=== PATIENT | male | born 1980 | race Caucasian/White ===

== ENCOUNTER 2016-12-07 07:09 | Inpatient (IN) | payer MEDICAID, OTHER ==
[2016-12-07] MEDS ORDERED: MAG HYDROX/AL HYDROX/SIMETH 30 ML CUP PO PRN (11:28)
[2016-12-07] MEDS ORDERED: MAGNESIUM HYDROXIDE 2,400 MG/10 ML CUP PO PRN (11:28)
[2016-12-07] MEDS ORDERED: ACETAMINOPHEN TAB 325 MG TAB PO PRN (11:28)
[2016-12-07] MEDS ORDERED: LORazepam 2 MG/ML SYRINGE IM PRN (11:30)
[2016-12-07] MEDS ORDERED: LORazepam 1 MG TAB PO PRN (11:30)
[2016-12-07] MEDS ORDERED: ZIPRASIDONE 20 MG VIAL IM PRN (11:31)
--- NOTE | 2016-12-07 13:25 | P.HP ---
Psychiatric H&P - . H&P Date: 12/07/16 History & Physical: DATE OF SERVICE: 12/07/2016 IDENTIFYING DATA: This patient is a 36-year-old single male who was admitted to the mental health unit through . HISTORY OF PRESENT ILLNESS: The patient presents with being fearful of falling asleep due to the injection that he received at [facility]. Patient reports that he was having problems yesterday, got stopped by the police 3 times for doing stupid things. States that former friends have been doing things but is unwilling to describe them. States they're former friends so no reason to go into it. He reports that he is paranoid and not the only problem that he is having. Initially he denies auditory hallucinations, but then states he has conversations in his head "like with an imaginary friend" unable to describe the conversations. Patient states that approximately December of last year he took a look at himself and saw that he was overweight and decided to stop taking invega. States that when he was here in 2013 he started on invega and he gained weight and he didn' t like how he felt, to lethargic. Unclear when he was changed from the injection to the oral medicine. Today patient states he would just prefer to have Ativan and Ritalin when necessary and maybe a little Seroquel. Patient has no insight to his illness. PAST PSYCHIATRIC HISTORY: Last admission here May 2014. Noncompliance with outpatient care. Patient reports problems with almost every medication he has been on, causing sedation and weight gain.. PAST MEDICAL HISTORY: Per record. ALLERGIES: No known drug allergies. CHEMICAL DEPENDENCY HISTORY: Patient denies current substance use denies past history of drugs and alcohol.. 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 FAMILY CHEMICAL DEPENDENCY HISTORY: Patient denies. LEGAL HISTORY: Had a domestic violence charge against his mother, no pending charges. SOCIAL HISTORY: Patient reports that he was raised by his mother and father has an older brother. Currently he is living with his father, was vague about the problems occurring, describes it as a intensity/energy possibly due to his own paranoia. Patient states that his father is probably going to hang amount to dry like he did the last time he was here, and make him stay for a month. States he thinks he has burned all of his bridges, unwilling to discuss his paranoid ideation related to "former friends". 1 and , no children. On social security disability.. MENTAL STATUS EXAM: Patient alert and oriented 3, good eye contact, poorly groomed in street clothing. Speech normal volume, slight increase rate and production. Push to speech, not pressured Coherent, logical and circumstantial thought process. No [place], no FOI. No TB/TW/ TI +auditory hallucinations, no visual hallucinations. +++ paranoid ideation, but reluctant to reveal, possible delusions or IOR related to "former friends" Memory grossly intact Cognition average intelligence Mood neutral to irritable, affect constricted, congruent with mood. Denies suicidal ideation, denies homicidal ideation. Insight limited; Judgment grossly intact for treatment purposes ]. STRENGTHS: Has a home. WEAKNESSES: No insight. IMPRESSIONS: Patient with history of bipolar disorder, with bizarre behavior leading police to cert patient to [facility]. Patient received an injection while at [facility], which most likely has dampened the manic symptoms that he was experiencing and now presents with hypomania. Patient is noncompliant with his outpatient care, not taking his antipsychotic medication. Patient has no insight. He is in need of antipsychotic/mood stabilizer but is trying to direct the dose and refuses injection. Bipolar disorder, MRA manic PLAN: Continue inpatient admission for safety (patients and others), monitor. Need outpatient information, have called [facility] but no information. Will restart oral 6mg paliperidone, qhs. but he will most likely need injection. Suicide precautions. Physical examination, labs. . Allergies Allergy/AdvReac Type Severity Reaction Status Date / Time No Known Allergies Allergy Verified 12/07/16 10:12 Vital Signs Temp 98.3 F 12/07/16 10:14 Pulse 86 12/07/16 10:14 Resp 15 12/07/16 10:14 BP 145/76 12/07/16 10:14 Pulse Ox 96 12/07/16 10:14 Intake & Output 12/06/16 12/07/16 12/07/16 18:59 06:59 18:59 Weight 108.4 kg 12/07/16 12:41 12/07/16 13:26
[2016-12-07] MEDS: QUEtiapine 100 MG TAB PO SCH (21:00)
[2016-12-07] MEDS: PALIPERIDONE 6 MG TAB.ER.24 PO SCH (21:00)
--- NOTE | 2016-12-08 08:14 | CONS ---
DATE OF CONSULTATION: REASON FOR CONSULTATION: Medical clearance. Patient is a 36-year-old pleasant gentleman who was admitted with history of bipolar disorder, admitted for depression. Patient denied any fever, chills. Patient denied any nausea, vomiting, abdominal pain. Home medications include: Cyanocobalamin, ginkgo biloba, lorazepam, magnesium oxide, Ritalin, ( ), and Seroquel. PAST MEDICAL HISTORY: Significant for ADHD, bipolar disorder, hernia repair in the past. Patient does smoke. Denied any alcohol abuse or any drug abuse. FAMILY HISTORY: Significant for psychiatric disorders. PHYSICAL EXAMINATION: VITAL SIGNS: Temperature 98.0, pulse of 78, respiratory rate 18, blood pressure 125/69, saturation 96% on room air. GENERAL: The patient is alert and oriented x3, not in any acute distress. Well developed, well nourished. HEENT: Pupils are round and equally reacting to light. EOMI. No scleral icterus. No conjunctival pallor. Normocephalic, atraumatic. No pharyngeal erythema. No thyromegaly. CARDIOVASCULAR: S1 and S2 present. No murmurs, rubs, or gallops. PULMONARY: Chest is clear to auscultation, no wheezing or crackles. ABDOMEN: Soft, nontender, nondistended, normoactive bowel sounds. No palpable organomegaly. MUSCULOSKELETAL: No joint swelling or deformity. EXTREMITIES: No cyanosis, clubbing, or pedal edema. NEUROLOGICAL: Gross neurological examination did not reveal any focal deficits. SKIN: No rashes. LABORATORY DATA: Magnesium is 2.0. ASSESSMENT AND PLAN: 1. Depression. Management as per primary service. 2. Nicotine abuse. Counseling was provided. 3. There are no major medical issues for the patient. Patient is stable enough and will not require any hospitalizations to inpatient medicine. Will sign off at this point of time. Thank for letting me participate in the care of this patient.
--- NOTE | 2016-12-08 09:03 | P.PN ---
Progress Note - Text CLINICAL PROBLEMS: Bipolar disorder manic 24 HOUR EVENTS: He slept 6 hours last night after receiving 1 mg of lorazepam at 21:01. He has been compliant with prescribed medication and posed no management problem. EXAMINATION: He presented as a 36-year-old somewhat disheveled appearing male who was pleasant on approach. He appeared moderately sedated. He complained of feeling restless and having difficulty sitting still. He attributed this hospitalization to being unable to sleep and attributes his insomnia to inadvertently taking Ritalin at night rather than during the day. He was restless and is often observed pacing the unit. He had no abnormal involuntary movements. His gait was steady. His speech was spontaneous with normal rate, rhythm and volume. His affect was blunted but stable and appropriate. He denied suicidal ideation or wishes. He denied homicidal ideation. He denied feeling hopeless, helpless or worthless. He ruminated on the events leading up to his hospitalization. His thinking was concrete but his associations were coherent and logical. He denied hallucinations and did not appear to be responding to internal stimuli. PERTINENT DATA: Medicine consult appreciated (no current medical problems). Magnesium levels from 12/07/2016 was 2.0 ASSESSMENT: He continued show symptoms of hypomania. He is able to tolerate current psychotropic medications with only moderate sedation. PLAN: Continue inpatient hospitalization. Continue suicide precautions with 15 minute checks. Continue Seroquel 100 mg at bedtime and Invega 6 mg daily at bedtime. Continue lorazepam 1 mg every 8 hours IM for acute agitation or acute psychosis and/or 20 mg of Geodon IM twice a day when necessary for agitation or acute psychosis. Encourage participation in therapeutic groups to activities. Evaluate clinical status response to treatment on a daily basis.
[2016-12-08 10:44] VITALS: BMI 32.3
[2016-12-08] MEDS: CYANOCOBALAMIN 500 MCG TAB PO SCH (12:52)
[2016-12-08] MEDS: QUEtiapine 100 MG TAB PO SCH (20:35)
[2016-12-08] MEDS: PALIPERIDONE 6 MG TAB.ER.24 PO SCH (20:35)
--- NOTE | 2016-12-09 11:12 | P.PN ---
Progress Note - Text CLINICAL PROBLEMS: Bipolar disorder manic 24 HOUR EVENTS: He slept 4 hours last night. He has been compliant with prescribed medication and posed no management problem. EXAMINATION: He presented as a 36-year-old male who was pleasant on approach. He appeared sedated. He complained of feeling of feeling sluggish and "medicated". He attributed this feeling to restarting Invega (admitted to not taking the medication prior to admission). He is not interested and transitioning from oral to long-acting Invega. He complained that he was sedated and fatigued when he receiving Invega Sustena. He had no abnormal involuntary movements. His gait was steady. His speech was spontaneous with normal rate, rhythm and volume. His affect was blunted but stable and appropriate. He denied suicidal ideation or wishes. He denied homicidal ideation. He denied feeling hopeless, helpless or worthless. His thinking was concrete but his associations were coherent and logical. He denied hallucinations and did not appear to be responding to internal stimuli. ASSESSMENT: He does not appear manic or hypomanic. He is able to tolerate current psychotropic medications with only moderate sedation. PLAN: Continue inpatient hospitalization. Continue suicide precautions with 15 minute checks. Continue Seroquel 100 mg at bedtime and Invega 6 mg daily at bedtime. Continue lorazepam 1 mg every 8 hours IM for acute agitation or acute psychosis and/or 20 mg of Geodon IM twice a day when necessary for agitation or acute psychosis. Encourage participation in therapeutic groups to activities. Evaluate clinical status response to treatment on a daily basis.
[2016-12-09] MEDS: CYANOCOBALAMIN 500 MCG TAB PO SCH (12:03)
[2016-12-09] MEDS: PALIPERIDONE 6 MG TAB.ER.24 PO SCH (21:20)
[2016-12-09] MEDS: QUEtiapine 100 MG TAB PO SCH (21:20)
[2016-12-10] MEDS: CYANOCOBALAMIN 500 MCG TAB PO SCH (12:36)
[2016-12-10] MEDS ORDERED: PALIPERIDONE IM 234 MG/1.5 ML SYG IM STA ×2 (12:54→16:18)
--- NOTE | 2016-12-10 13:02 | P.PN ---
Progress Note - Text INTERVERAL HISTORY:Patient came to nurses station when called, pleasant on approach. Reports he is doing better, states glad he came here after what happened but not able to recall exactly and believes taking his ritalin at night instead of seroquel is cause of his behavior. He also states he thinks he can take invega since he is not taking depakote, that the combination caused him to gain 100LBS+ . He even is agreeable to take injection. Discussed his father is fed up with him, patient says he is at his mercy, he has no place to go, cannot imagine going to a mens prison. Reports his sleep is broken up, 2 hours at most, thinks he is sleeping 6-8 hours when combined. He denies thoughts of self harm, denies thoughts of harming others. Endorses "paranoid thoughts", feels he has a target on his back in his home town , speaks about the town has made him who he is, unable to clarify what he means. He denies auditory hallucinations. Patient with history of bipolar disorder, with bizarre behavior leading police to cert patient to [facility]. Patient received an injection while at [facility], which most likely has dampened the manic symptoms that he was experiencing and now presents with hypomania. Patient is noncompliant with his outpatient care, not taking his antipsychotic medication. Patient has no insight. He is in need of antipsychotic/mood stabilizer but is trying to direct the dose and refuses injection. Bipolar disorder, MRA manic MENTAL STATUS EXAM:A&OX3, disheveled, good eye contact. Speech pressured, but coherent, circumstantial, no [place], no FOI. +paranoid ideation. Denies a/v hallucinations. Mood irritable, affect constricted. PLAN: Patient is still hypomanic but improving with paliperidone and quetiapine. Has agreed to injection of paliperidone, will start today. Continue with inpatient admission due to hypomania, and danger to self and others. Continue suicide precautions. Family meeting occurred and appears housing will need to be addressed.
[2016-12-10] MEDS: QUEtiapine 100 MG TAB PO SCH (21:22)
[2016-12-11 06:46] VITALS: RESP 16
--- NOTE | 2016-12-11 11:57 | P.PN ---
Progress Note - Text INTERVERAL HISTORY:Patient playing cards with another patient. Pleasant on approach, came to office. Reports he took injection, feels he is better with what happened, still with some paranoia, and fear that his family "guilt by association" will cause them problems. Cannot be more specific. Again states glad he came here after what happened but not able to recall exactly and believes taking his ritalin at night instead of seroquel is cause of his behavior. He accepted the invega injection yesterday and is in agreement he will continue injection and as long as not combined with vpa, believes he gained 100lbs when he took last year. Discussed the family meeting yesterday did not go well, he made call last night and he now believes his father is going to help him some, but plans on finding his own place once he has his monthly check. Sleep better. He denies thoughts of self harm, denies thoughts of harming others. Endorses "paranoid thoughts", feels he has a target on his back in his home town , wants [facility], but he has many services that cannot be set up quickly. He denies auditory hallucinations. Patient with history of bipolar disorder, with bizarre behavior leading police to petition patient to [facility]. Patient received an injection while at [facility], which most likely has dampened the manic symptoms that he was experiencing. Over last 4 days reduction in hypomania. Today thoughts are organized. Bipolar disorder, MRA manic MENTAL STATUS EXAM: Alert and oriented [address], good eye contact. Pleasant and cooperative Speech normal volume rate production, no pressured speech, no [place] no FOI no delusions,+ paranoid ideation. No auditory or visual hallucinations. Mood neutral to euthymic, no irritability, affect full range decreased intensity congruent with mood No suicidal ideation no homicidal ideation PLAN: Continue inpatient admission for safety and continued observation of response to medications. Family meeting tomorrow for discharge planning. [place]. Discharge tomorrow.
[2016-12-11] MEDS: CYANOCOBALAMIN 500 MCG TAB PO SCH (12:40)
[2016-12-11] MEDS: QUEtiapine 100 MG TAB PO SCH (20:46)
[2016-12-12 06:50] VITALS: BP 120/79; PULSE 71; TEMP 97.4
--- NOTE | 2016-12-12 09:45 | P.DS ---
Providers Date of admission: 12/07/16 08:55 Expected date of discharge: 12/12/16 Attending physician: Eileen Campbell MD Consults: 12/07/16 11:28 Consult Physician Routine Consulting Provider: Adeel Arias Consult Reason/Comments: Follow up H & P Do you want consulting provider notified?: Yes Primary care physician: [facility] Course: The patient presented to ER after problems with police for doing stupid things. Patient was paranoid about his friends but would not elaborate. He had attempted to drive off in another persons car but was stopped by mobile crisis team. Patient believed he beacame manic because he took ritalin instead of quetiapine. Patient had stopped his Invega 11 months earlier due to weight gain. He and his father were having conflict at home and initially father would not help patient but eventually father agreed after patient accepted injection of medicine. Over 3-4 days with oral paliperidone patient became less manic, paranoid and reported better sleep. He then accepted injection, 234mg. Willing to take injection in outpatient. Pertinent Studies: none Procedures: none Patient Condition at Discharge: Stable Plan - Discharge Summary New Discharge Prescriptions: LORazepam [Ativan] 1 - 2 mg PO DAILY #10 QUEtiapine [SEROquel] 100 mg PO HS #30 tab Discharge Medication List Cyanocobalamin [Vitamin B-12] 1,000 mcg PO DAILY 12/07/16 [History] Magnesium 200 mg PO DAILY 12/07/16 [History] LORazepam [Ativan] 1 - 2 mg PO DAILY #10 12/12/16 [Rx] QUEtiapine [SEROquel] 100 mg PO HS #30 tab 12/12/16 [Rx] Follow up Appointment(s)/Referral(s): [facility] [Outside] - 12/13/16 1:00 pm (12/13/16 at 1 with ACT team 12/18/16 - Injection at 11:30am w/ Dr. Jacob on 12/25/16 @ 11am ) Discharge Disposition: HOME SELF-CARE
== END 2016-12-12 10:31 | disposition home or self-care (01) | DRG 885 ==
LOC: 3MHU 08:55
PROVIDERS: ADMIT Psychiatry & Neurology Addiction Medicine; ATTEND Psychiatry & Neurology Addiction Medicine
DX: F31.9 Bipolar disorder, unspecified (principal); Z91.19 Patient's noncompliance with other medical treatment and regimen; F84.0 Autistic disorder; F90.9 Attention-deficit hyperactivity disorder, unspecified type; Z81.8 Family history of other mental and behavioral disorders; F17.200 Nicotine dependence, unspecified, uncomplicated; Z79.899 Other long term (current) drug therapy
CPT/HCPCS: 83735

== ENCOUNTER 2019-04-21 16:45 | Inpatient (IN) | payer MEDICAID, OTHER ==
--- NOTE | 2019-04-21 17:22 | ED ---
General Adult HPI - General Chief complaint: Psychiatric Symptoms Stated complaint: Petition Time Seen by Provider: 04/21/19 16:55 Source: patient, RN notes reviewed Mode of arrival: ambulatory Limitations: no limitations - History of Present Illness Initial comments: This is a 39-year-old male who was ordered by the booster station operator to come to be evaluated in the emergency department. A petition was on the chart as well. Patient himself states he was upset because her try to give him his injection once every 3 weeks and he believes is supposed be once every 4 weeks. Patient also states he is supposed take Seroquel once a day but he does not always take doesn't think she needs it. The petition stated that the patient was becoming more unpredictable and argumentative at home he denied this patient also states that he sleeping a lot less and again the patient denies this. Patient is cooperative but does not want to be here because he doesn't believe anything is going on. Patient denies any physical complaints today. Denies any chest pain or difficulty breathing first breath per patient denies any abdominal pain patient denies nausea vomiting diarrhea. Patient denies any fever chills or cough. - Related Data Home Medications Medication Instructions Recorded Confirmed Cyanocobalamin [Vitamin B-12] 1,000 mcg PO DAILY 12/07/16 04/21/19 Ginkgo Biloba 500 mg PO DAILY 04/21/19 04/21/19 LORazepam [Ativan] 1 mg PO BID PRN 04/21/19 04/21/19 Omeprazole [PriLOSEC] 20 mg PO DAILY 04/21/19 04/21/19 Paliperidone Palmitate [Invega 39 mg IM Q28D 04/21/19 04/21/19 Sustenna] QUEtiapine [SEROquel] 100 - 200 mg PO HS PRN 04/21/19 04/21/19 Allergies Allergy/AdvReac Type Severity Reaction Status Date / Time No Known Allergies Allergy Verified 04/21/19 17:47 Review of Systems ROS Statement: Those systems with pertinent positive or pertinent negative responses have been documented in the HPI. ROS Other: All systems not noted in ROS Statement are negative. Past Medical History Additional Past Medical History / Comment(s): bipolar History of Any Multi-Drug Resistant Organisms: None Reported Past Surgical History: Hernia Repair Past Anesthesia/Blood Transfusion Reactions: No Reported Reaction Past Psychological History: Anxiety, Bipolar Smoking Status: Current every day smoker Past Alcohol Use History: None Reported Past Drug Use History: None Reported General Exam - General Exam Comments Initial Comments: GENERAL: Patient is well-developed and well-nourished. Patient is nontoxic and well- hydrated and is in no acute distress. ENT: Neck is soft and supple. No significant lymphadenopathy is noted. Oropharynx is clear. Moist mucous membranes. Neck has full range of motion without eliciting any pain. EYES: The sclera were anicteric and conjunctiva were pink and moist. Extraocular movements were intact and pupils were equal round and reactive to light. Eyelids were unremarkable. PULMONARY: Unlabored respirations. Good breath sounds bilaterally. No audible rales rhonchi or wheezing was noted. CARDIOVASCULAR: There is a regular rate and rhythm without any murmurs gallops or rubs. ABDOMEN: Soft and nontender with normal bowel sounds. SKIN: Skin is clear with no lesions or rashes and otherwise unremarkable. NEUROLOGIC: Patient is alert and oriented x3. Cranial nerves II through XII are grossly intact. Motor and sensory are also intact. Normal speech, volume and content. Symmetrical smile. MUSCULOSKELETAL: Normal extremities with adequate strength and full range of motion. LYMPHATICS: No significant lymphadenopathy is noted PSYCHIATRIC:Patient denies any suicidal or homicidal ideations. Patient denies wanting to harm anybody. Patient denies seeing or hearing any voices. Patient is hyperverbal and does admit that is not taking his Seroquel and does admit he is upset about taking more injections unnecessary. Limitations: no limitations Course Vital Signs 04/21/19 16:52 Temperature 98.8 F Pulse Rate 105 H Respiratory 18 Rate Blood Pressure 161/93 O2 Sat by Pulse 95 Oximetry Medical Decision Making - Medical Decision Making This evaluated the patient and determined the patient should stay and the patient signed in. - Lab Data Lab Results 04/21/19 Range/Units 18:06 Urine Opiates Screen Not Detected (NotDetected) Ur Oxycodone Screen Not Detected (NotDetected) Urine Methadone Screen Not Detected (NotDetected) Ur Propoxyphene Screen Not Detected (NotDetected) Ur Barbiturates Screen Not Detected (NotDetected) U Tricyclic Antidepress Not Detected (NotDetected) Ur Phencyclidine Scrn Not Detected (NotDetected) Ur Amphetamines Screen Not Detected (NotDetected) U Methamphetamines Scrn Not Detected (NotDetected) U Benzodiazepines Scrn Not Detected (NotDetected) Urine Cocaine Screen Not Detected (NotDetected) U Marijuana (THC) Screen Detected H (NotDetected) Disposition Clinical Impression: Sharda (monopolar) single episode or unspecified, Noncompliance with medication regimen Disposition: ADMITTED IP TO THIS HOSP Referrals: None,Stated [REFERRING] - 1-2 days Time of Disposition: 20:17
[2019-04-21 19:12] LABS: Amphetamine Screen,Urine Not Detected (NotDetected); Barbiturate Screen,Urine Not Detected (NotDetected); Benzodiazepines Screen,Urine Not Detected (NotDetected); Cocaine Screen,Urine Not Detected (NotDetected); Methadone Screen, Urine Not Detected (NotDetected); Opiate Screen,Urine Not Detected (NotDetected); Oxycodone Screen, Urine Not Detected (NotDetected); Phencyclidine Screen,Urine Not Detected (NotDetected); Tricyclic Antidepressant,Urine Not Detected (NotDetected); Urn Cannabinoid Scrn Detected (NotDetected)
[2019-04-21] MEDS ORDERED: ZIPRASIDONE 20 MG VIAL IM PRN (22:48)
[2019-04-21] MEDS ORDERED: MAG HYDROX/AL HYDROX/SIMETH 30 ML CUP PO PRN (22:48)
[2019-04-21] MEDS ORDERED: MAGNESIUM HYDROXIDE 2,400 MG/10 ML CUP PO PRN (22:48)
[2019-04-21] MEDS ORDERED: LORazepam 2 MG/ML INJ IM PRN (22:51)
[2019-04-21] MEDS: NICOTINE POLACRILEX 2 MG GUM BUCCAL PRN (23:29)
[2019-04-22] MEDS: NICOTINE POLACRILEX 2 MG GUM BUCCAL PRN ×2 (05:24→12:22)
[2019-04-22 08:29] LABS: ALT 109 U/L (21-72); AST 50 U/L (17-59); African American GFR (CKD) >90 (>60 ml/min/1.73 sqM); Alkaline Phosphatase 72 U/L (38-126); Anion Gap 9 mmol/L; Blood Urea Nitrogen 18 mg/dL (9-20); Calcium 9.4 mg/dL (8.4-10.2); Carbon Dioxide 22 mmol/L (22-30); Chloride 106 mmol/L (98-107); Cholesterol 173 mg/dL (<200); Glucose 97 mg/dL (74-99); HDL Cholesterol 37 mg/dL (40-60); LDL Cholesterol,Calculated 91 mg/dL (0-99); Potassium 4.5 mmol/L (3.5-5.1); Sodium 137 mmol/L (137-145); Total Bilirubin 0.5 mg/dL (0.2-1.3); Total Protein 6.8 g/dL (6.3-8.2); Triglycerides 223 mg/dL (<150)
[2019-04-22 08:32] LABS: Basophils # (A) 0.1 k/uL (0-0.2); Basophils % (A) 1 %; Eosinophils # (A) 0.2 k/uL (0-0.7); Eosinophils % (A) 2 %; HGB 15.7 gm/dL (13.0-17.5); Lymphocytes # (A) 2.5 k/uL (1.0-4.8); Lymphocytes % (A) 25 %; MCH 29.8 pg (25.0-35.0); MCHC 33.4 g/dL (31.0-37.0); Mean Platelet Volume 5.7; Monocytes # (A) 0.5 k/uL (0-1.0); Monocytes % (A) 5 %; Neutrophils # (A) 6.5 k/uL (1.3-7.7); Neutrophils % (A) 65 %; Platelet Count 300 k/uL (150-450); RBC 5.28 m/uL (4.30-5.90); RDW 13.3 % (11.5-15.5)
[2019-04-22] MEDS: CYANOCOBALAMIN 500 MCG TAB PO SCH (08:50)
[2019-04-22] MEDS: PANTOPRAZOLE 40 MG TABLET PO SCH (08:50)
[2019-04-22] MEDS ORDERED: PALIPERIDONE PALMITATE IM SCH (09:00)
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
[2019-04-22] MEDS: PALIPERIDONE 3 MG TAB.ER.24 PO SCH (13:12)
--- NOTE | 2019-04-22 13:18 | P.CONS ---
History of Present Illness - Reason for Consult Medical clearance - History of Present Illness This is a pleasant 47-year-old gentleman admitted the to psychiatric floor for stabilization of his status secondary symptoms. Patient denied fever chills nausea vomiting abdominal pain patient doesn't smoke. Patient had any fever chills dysuria. Review of Systems REVIEW OF SYSTEMS: CONSTITUTIONAL: No fever, no malaise, no fatigue. HEENT: No recent visual problems or hearing problems. Denied any sore throat. CARDIOVASCULAR: No chest pain, orthopnea, PND, no palpitations, no syncope. PULMONARY: No shortness of breath, no cough, no hemoptysis. GASTROINTESTINAL: No diarrhea, no nausea, no vomiting, no abdominal pain. NEUROLOGICAL: No headaches, no weakness, no numbness. HEMATOLOGICAL: Denies any bleeding or petechiae. GENITOURINARY: Denies any burning micturition, frequency, or urgency. MUSCULOSKELETAL/RHEUMATOLOGICAL: Denies any joint pain, swelling, or any muscle pain. ENDOCRINE: Denies any polyuria or polydipsia. The rest of the 14-point review of systems is negative. Past Medical History Additional Past Medical History / Comment(s): bipolar History of Any Multi-Drug Resistant Organisms: None Reported Past Surgical History: Hernia Repair Past Anesthesia/Blood Transfusion Reactions: No Reported Reaction Past Psychological History: Anxiety, Bipolar Smoking Status: Current every day smoker Past Alcohol Use History: None Reported Past Drug Use History: None Reported Medications and Allergies Home Medications Medication Instructions Recorded Confirmed Type Cyanocobalamin [Vitamin B-12] 1,000 mcg PO DAILY 12/07/16 04/21/19 History Ginkgo Biloba 500 mg PO DAILY 04/21/19 04/21/19 History LORazepam [Ativan] 1 mg PO BID PRN 04/21/19 04/21/19 History Omeprazole [PriLOSEC] 20 mg PO DAILY 04/21/19 04/21/19 History Paliperidone Palmitate [Invega 39 mg IM Q28D 04/21/19 04/21/19 History Sustenna] QUEtiapine [SEROquel] 100 - 200 mg PO HS PRN 04/21/19 04/21/19 History Allergies Allergy/AdvReac Type Severity Reaction Status Date / Time No Known Allergies Allergy Verified 04/21/19 17:47 Physical Exam Vitals: Vital Signs Temp Pulse Pulse Resp BP BP Pulse Ox 04/22/19 06:28 82 18 133/74 04/21/19 21:52 97.3 F L 82 16 122/88 95 04/21/19 16:52 98.8 F 105 H 18 161/93 95 Intake and Output 04/21/19 04/22/19 04/22/19 22:59 06:59 14:59 Other: Weight 130.181 kg PHYSICAL EXAMINATION: GENERAL: The patient is alert and oriented x3, not in any acute distress. Well developed, well nourished. HEENT: Pupils are round and equally reacting to light. EOMI. No scleral icterus. No conjunctival pallor. Normocephalic, atraumatic. No pharyngeal erythema. No thyromegaly. CARDIOVASCULAR: S1 and S2 present. No murmurs, rubs, or gallops. PULMONARY: Chest is clear to auscultation, no wheezing or crackles. ABDOMEN: Soft, nontender, nondistended, normoactive bowel sounds. No palpable organomegaly. MUSCULOSKELETAL: No joint swelling or deformity. EXTREMITIES: No cyanosis, clubbing, or pedal edema. NEUROLOGICAL: Gross neurological examination did not reveal any focal deficits. SKIN: No rashes. Results CBC & Chem 7: 04/22/19 07:41 04/22/19 07:41 Labs: Abnormal Lab Results - Last 24 Hours (Table) 04/21/19 04/22/19 Range/Units 18:06 07:41 ALT 109 H (21-72) U/L Triglycerides 223 H (<150) mg/dL HDL Cholesterol 37 L (40-60) mg/dL U Marijuana (THC) Screen Detected H (NotDetected) Assessment and Plan Plan: -Gastroesophageal reflux disease can resume on Prilosec --Bipolar disorder: Management as per primary service -Nicotine use: Counseling was provided
[2019-04-22] MEDS: NICOTINE 21MG/24HR PATCH TRANSDERM SCH (14:34)
[2019-04-22 19:18] LABS: Hemoglobin A1C 5.8 % (4.0-6.0)
[2019-04-23] MEDS: LORazepam 1 MG TAB PO PRN ×2 (02:06→22:42)
[2019-04-23] MEDS: PANTOPRAZOLE 40 MG TABLET PO SCH (08:41)
[2019-04-23] MEDS: CYANOCOBALAMIN 500 MCG TAB PO SCH (08:41)
[2019-04-23] MEDS: PALIPERIDONE 3 MG TAB.ER.24 PO SCH ×2 (08:41→21:21)
[2019-04-23] MEDS: NICOTINE 21MG/24HR PATCH TRANSDERM SCH (08:41)
--- NOTE | 2019-04-23 11:29 | P.PN ---
Progress Note - Text Progress Note Date: 04/23/19 Interval History: Patient was seen today for follow-up as he was wandering the hallways and agre eable to speak to the engineering technical writer in the office. Patient appears to be frustrated and upset with his medications and continues to refuse his long-acting injection. He states that he is only agreeable to take the 39 mg IM injection and is refusing to cooperate and take the higher dose. Patient states that the ACT team and Dr. Jacob are against him and feels that nobody is listening to him. Patient appears to be irritable with a low frustration tolerance. Patient continues to have poor insight into his medications and his need for treatment. He states that he felt sleepy after taking his medication yesterday during the day and is agreeable to take it at night instead. At this time patient denies any suicidal or homical ideations, intent or plan. Patient denies any auditory, visual hallucinations and denies any paranoia or delusions. Patient denies any side effects from the medications and has been compliant with meds. Mental Status Exam: General Appearance: Patient appears to be older than stated age is alert, frustrated, yet is directable. Patient has poor eye contact poor hygiene Behavior: Patient is calmly seated without any agitated behavior. Easily frustrated and upset. Speech: Patient's speech is fluent and nonpressured. Loud at times. Mood/Affect: Patient reports their mood is "ok", affect is incongruent Suicidality/Homicidality: Patient denies having any suicidal or homicidal ideation intent or plan. Perceptions: Patient denies any auditory or visual hallucinations. Though content/process: There is no evidence of any delusional thought content and thought process is linear and goal-directed. Patient is preoccupied with his medications and appears to be frustrated with his treatment. Memory and concentration: AOX3, grossly intact for the purposes of this session. Judgment and insight: Poor/superficial. Assessment Bipolar disorder unspecified Cannabis use disorder Plan: -Patient continues to meet criteria for inpatient psychiatric admission for symptom stabilization and safety. Patient has signed adult voluntary form and medication consent and was placed in patient's chart. -Petition and 2 certifications will be completed today and filed for court process to generate a outpatient/inpatient order for treatment as patient is noncompliant with his injections and has been decompensating gradually. -Medications: We'll switch Invega 3 mg 2 nightly dosing. Will order Invega Sustenna 156 mg loading dose today. Patient last received his Invega Sustenna 39 mg on 03/24/2019 -When necessary Geodon and Ativan for agitation/aggression. -NRT - nicotine patch -SW on board for discharge planning.
[2019-04-23] MEDS ORDERED: PALIPERIDONE IM 156 MG/ML SYG IM ONE (20:00)
[2019-04-24] MEDS: NICOTINE 21MG/24HR PATCH TRANSDERM SCH (07:51)
[2019-04-24] MEDS: PANTOPRAZOLE 40 MG TABLET PO SCH (07:52)
[2019-04-24] MEDS: CYANOCOBALAMIN 500 MCG TAB PO SCH (07:52)
[2019-04-24] MEDS ORDERED: PALIPERIDONE IM 156 MG/ML SYG IM STA (11:15)
--- NOTE | 2019-04-24 13:19 | PN ---
PROGRESS NOTE DATE OF SERVICE: 04/24/2019 CHIEF COMPLAINT: The patient was distressed and argumentative. He had conflicts with [facility] treatment. He has a past history of significant difficulties with mood disorder. He was admitted on petition for involuntary hospitalization. INTERVAL HISTORY: Patient has been doing fair. He had a quiet evening last night. He comes out in the day area. He does interact with others. He wanders about the unit. He attends groups. One of his main focuses has been being distressed about being in the hospital and feeling that he has not received reasonable care through [facility]. He slept 6 hours last night. Today he has been up. He continues to be out and interacts with others. At groups he has been noted to be appropriate. When I met with the patient, his main focus was feeling that he wanted some help with treatment and then being guided towards alternatives to [facility] followup as he feels that treatment there has not been supportive for him. We reviewed his petition status. The patient continues to express concerns regarding Invega Sustenna that he has been on, feeling that it has caused him sedation. MENTAL STATUS: Patient was restless he gave fairly good eye contact. He answered questions with direct responses. His thoughts were clear. He was spontaneous and interactive. His affect was intense. At times he expressed anger, though also he was quite cooperative in the interview process. His mood was dysphoric. He was moderately distressed. There was no indication of thought disorder. Cognition was clear. ASSESSMENT: I will continue the current diagnosis and treatment plan. We will continue to engage the patient in individual and group therapeutic activities. I reviewed the patient's petition status. I encouraged him to meet with the court-appointed business attorney to clarify what his status is at this point. I did review the option of his signing a deferral versus going for a court hearing. I encouraged him to take Invega Sustenna 156 mg IM injection given the history of problems he has had. I reviewed medication with him in terms of indications, side effects as well as metabolic concerns. We will continue to focus on stabilization and discharge planning. MARYLOU / DANY: [id number] /
[2019-04-24] MEDS: PALIPERIDONE 3 MG TAB.ER.24 PO SCH (20:37)
[2019-04-25] MEDS: NICOTINE 21MG/24HR PATCH TRANSDERM SCH (07:51)
[2019-04-25] MEDS: CYANOCOBALAMIN 500 MCG TAB PO SCH (07:51)
[2019-04-25] MEDS: PANTOPRAZOLE 40 MG TABLET PO SCH (07:51)
--- NOTE | 2019-04-25 11:14 | P.PN ---
Progress Note - Text Interval history: The patient is found in the hallway he follows me to an interview room. He presented me with a letter indicating he felt that his admission was hasty and unjust. He is advocating that he continues on the Invega Sustenna but at the lowest dose. He feels that that will be enough to stabilize his bipolar disorder without overly sedating him. He indicates he slept well last night staff report he slept 5 hours. He is eating meals he is attending groups. There is been no reports of any agitated behavior. Mental status exam: The patient is an overweight male appearing his stated age. He is pleasant cooperative and easily directed. He reports that his mood is frustrated by the current admission and is really hoping that he can advocate for a lesser dose of the Invega Sustenna. He reports no suicidal or homicidal thoughts. He is endorsing no auditory or visual hallucinations or any specific delusions. There is no observed evidence of psychosis. He demonstrates no tangential thinking loose associations or flight of ideas. He does not appear hypomanic or manic currently. He demonstrates no involuntary repetitive movements. He demonstrates future oriented thinking. Plan: The patient will continue on his current psychotropic medication. Vital signs reviewed. He is encouraged to continue participating in the milieu. He requires continued psychiatric hospitalization at this time.
[2019-04-25] MEDS: PALIPERIDONE 3 MG TAB.ER.24 PO SCH (20:44)
[2019-04-25] MEDS: LORazepam 1 MG TAB PO PRN ×2 (21:36)
[2019-04-26] MEDS: PANTOPRAZOLE 40 MG TABLET PO SCH ×2 (07:41→10:57)
[2019-04-26] MEDS: NICOTINE 21MG/24HR PATCH TRANSDERM SCH (07:41)
[2019-04-26] MEDS: CYANOCOBALAMIN 500 MCG TAB PO SCH (07:41)
--- NOTE | 2019-04-26 11:12 | P.PN ---
Progress Note - Text Interval history: The patient is found in the hallway he follows me to an interview room. He states that he feels emotionally drained today and we'll likely stay in his room. He continues to be concerned that he will receive an invega injection at a dose that is higher than he thinks he needs. He is agreeable to using the medication as he does not want to become manic but feels that when the dose is too high he feels overmedicated. Appetite remains stable. He slept at least 7 hours last night. No agitated behavior reported. Plan: The patient is an overweight male appearing his stated age. He has adequate hygiene grooming eye contact is appropriate. Pleasant cooperative easily directed. He reports no suicidal or homicidal ideation intent or plan. He is reporting no auditory or visual hallucinations or any specific delusions. He demonstrates no evidence of psychosis. He demonstrates no tangential thinkin g loose associations or flight of ideas he does not appear hypomanic or manic at this time. Affect constricted. He demonstrates no verbal or physical aggressiveness. He demonstrates no involuntary repetitive movements. Insight and judgment grossly intact. Plan: The patient will continue on his current medications. He is agreeable to receive an invega injection but would like to compromise on the dose. He is encouraged to participate in the milieu. We will monitor for safety. Vital signs reviewed.
[2019-04-26] MEDS: LORazepam 1 MG TAB PO PRN (14:10)
[2019-04-26] MEDS: PALIPERIDONE 3 MG TAB.ER.24 PO SCH (20:41)
[2019-04-26] MEDS: ACETAMINOPHEN TAB 325 MG TAB PO PRN (21:23)
[2019-04-27] MEDS: NICOTINE 21MG/24HR PATCH TRANSDERM SCH (07:54)
[2019-04-27] MEDS: PANTOPRAZOLE 40 MG TABLET PO SCH (07:54)
[2019-04-27] MEDS: CYANOCOBALAMIN 500 MCG TAB PO SCH (07:54)
--- NOTE | 2019-04-27 11:31 | P.PN ---
Progress Note - Text Progress Note Date: 04/27/19 Interval History: Patient was seen today for follow-up as he was wandering the hallways after gr oup and agreeable to speak to the medical writer in the office. Patient appears to be more directable today and appears to be calmer. Patient claims that he has been going to groups and trying to participate his was as he can. He states that he is continuing to wait for his court date and refused his long-acting injection on . He states that he is only agreeable to take the 39 mg IM injection which he believes is his "perfect dose". her dose. Patient continues to have poor insight into his medications and his need for treatment. He states that he is sleeping well at night on the current medications and wants to continue at this dose. At this time patient denies any suicidal or homical ideations, intent or plan. Patient denies any auditory, visual hallucinations and denies any paranoia or delusions. Patient denies any side effects from the medications and has been compliant with meds. Mental Status Exam: General Appearance: Patient appears to be older than stated age is alert and is directable. Patient has fair eye contact poor hygiene Behavior: Patient is calmly seated without any agitated behavior. Speech: Patient's speech is fluent and nonpressured. Mood/Affect: Patient reports their mood is "ok", affect is congruent Suicidality/Homicidality: Patient denies having any suicidal or homicidal ideation intent or plan. Perceptions: Patient denies any auditory or visual hallucinations. Though content/process: There is no evidence of any delusional thought content and thought process is linear and goal-directed. Memory and concentration: AOX3, grossly intact for the purposes of this session. Judgment and insight: Poor/superficial. Assessment Bipolar disorder unspecified Cannabis use disorder Plan: -Patient continues to meet criteria for inpatient psychiatric admission for symptom stabilization and safety. Patient has signed adult voluntary form and medication consent and was placed in patient's chart. -Petition and 2 certifications are filed for court process to generate a outpatient/inpatient order for treatment as patient is noncompliant with his injections and has been decompensating gradually. -Medications: We'll continue with Invega 3 mg 2 nightly dosing. Patient refused his Invega Sustenna 156 mg loading dose last week, therefore we'll wait for court order for this medication. -Patient last received his Invega Sustenna 39 mg on 03/24/2019 -When necessary Geodon and Ativan for agitation/aggression. -NRT - nicotine patch -SW on board for discharge planning.
[2019-04-27] MEDS: ASCORBIC ACID 500 MG TAB PO SCH ×2 (13:03→21:29)
[2019-04-27] MEDS: PALIPERIDONE 3 MG TAB.ER.24 PO SCH (21:30)
[2019-04-27] MEDS: LORazepam 1 MG TAB PO PRN (21:30)
[2019-04-28] MEDS: IBUPROFEN 600 MG TAB PO PRN (03:10)
[2019-04-28] MEDS: NICOTINE 21MG/24HR PATCH TRANSDERM SCH (08:40)
[2019-04-28] MEDS: PANTOPRAZOLE 40 MG TABLET PO SCH (08:40)
[2019-04-28] MEDS: CYANOCOBALAMIN 500 MCG TAB PO SCH (08:50)
[2019-04-28] MEDS: ASCORBIC ACID 500 MG TAB PO SCH ×2 (08:51→21:11)
--- NOTE | 2019-04-28 11:37 | P.PN ---
Progress Note - Text Progress Note Date: 04/28/19 Interval History: Patient was seen today as he was wandering the hallways and agreeable to speak to the technical report writer in the office. Patient appears to be calm today and appears to have a brighter affect. He states that he is going to groups and trying to participate. He states that he go be meeting with his wood strip block floor installer today and stated "I want her to defend my rights and notches make me sign some paper". Patient continues to have poor insight into his medications and his need for treatment. He states that he is sleeping well at night on the current medications and wants to continue at this dose. He states that his mood is mildly improving and denies any irritability. At this time patient denies any suicidal or homical ideations, intent or plan. Patient denies any auditory, visual hallucinations and denies any paranoia or delusions. Patient denies any side effects from the medications and has been compliant with meds. Mental Status Exam: General Appearance: Patient appears to be older than stated age is alert and is directable. Patient has fair eye contact poor hygiene Behavior: Patient is calmly seated without any agitated behavior. Speech: Patient's speech is fluent and nonpressured. Mood/Affect: Patient reports their mood is "fine", affect is congruent Suicidality/Homicidality: Patient denies having any suicidal or homicidal ideation intent or plan. Perceptions: Patient denies any auditory or visual hallucinations. Though content/process: There is no evidence of any delusional thought content and thought process is linear and goal-directed. Memory and concentration: AOX3, grossly intact for the purposes of this session. Judgment and insight: Poor/superficial. Assessment Bipolar disorder unspecified Cannabis use disorder Plan: -Patient continues to meet criteria for inpatient psychiatric admission for symptom stabilization and safety. Patient has signed adult voluntary form and medication consent and was placed in patient's chart. -Patient to meet with his wood strip block floor installer today regarding court proceedings. -Medications: We'll continue with Invega 3 mg nightly dosing for mood stabilization/psychosis. Patient refused his Invega Sustenna 156 mg loading dose last week, therefore we'll wait for court order for this medication. -Patient last received his Invega Sustenna 39 mg on 03/24/2019 -When necessary Geodon and Ativan for agitation/aggression. -NRT - nicotine patch -SW on board for discharge planning.
[2019-04-28] MEDS: LORazepam 1 MG TAB PO PRN (17:41)
[2019-04-28] MEDS: PALIPERIDONE 3 MG TAB.ER.24 PO SCH (21:11)
[2019-04-29] MEDS: PANTOPRAZOLE 40 MG TABLET PO SCH (08:23)
[2019-04-29] MEDS: NICOTINE 21MG/24HR PATCH TRANSDERM SCH (08:23)
[2019-04-29] MEDS: CYANOCOBALAMIN 500 MCG TAB PO SCH (08:23)
[2019-04-29] MEDS: ASCORBIC ACID 500 MG TAB PO SCH ×2 (08:23→21:03)
--- NOTE | 2019-04-29 11:51 | P.PN ---
Progress Note - Text Progress Note Date: 04/29/19 Interval History: Patient was seen today as he was wandering the hallways and agreeable to speak to the insurance underwriter in the office. Patient appears to be calm today however is complaining of having a cough and sore throat and states "I think I'm coming down with something". He states that he spoke with his farm adviser yesterday and was requesting a new one "when not will defend my rights" and states that his court date is set for next week and will be needing to prepare for it as he would like to fight the order from [facility]. Patient continues to have poor insight into his medications and his need for treatment. He states that his mood is "alright" denies any anxiety at this time. He states that he is going to some groups however does not want to go to the morning group stating "my problems are the same and out of work talk to people about it". He states that he is sleeping well at night on the current medications and wants to continue at this dose. At this time patient denies any suicidal or homical ideations, intent or plan. Patient denies any auditory, visual hallucinations and denies any paranoia or delusions. Patient denies any side effects from the medications and has been compliant with meds. Mental Status Exam: General Appearance: Patient appears to be older than stated age is alert and is directable. Patient has fair eye contact poor hygiene Behavior: Patient is calmly seated without any agitated behavior. Speech: Patient's speech is fluent and nonpressured. Mood/Affect: Patient reports their mood is "alright", affect is congruent Suicidality/Homicidality: Patient denies having any suicidal or homicidal ideation intent or plan. Perceptions: Patient denies any auditory or visual hallucinations. Though content/process: There is no evidence of any delusional thought content and thought process is linear and goal-directed. Memory and concentration: AOX3, grossly intact for the purposes of this session. Judgment and insight: Poor/superficial. Assessment Bipolar disorder unspecified Cannabis use disorder Plan: -Patient continues to meet criteria for inpatient psychiatric admission for symptom stabilization and safety. Patient has signed adult voluntary form and medication consent and was placed in patient's chart. -Patient met with his farm adviser yesterday regarding his rights and court proceedings and patient was requesting to have a new farm adviser. Patient did not defer and is choosing to go to court. -Medications: We'll continue with Invega 3 mg nightly dosing for mood stabilization/psychosis. Patient refused his Invega Sustenna 156 mg loading dose last week, therefore we'll wait for court order for this medication. -Patient last received his Invega Sustenna 39 mg on 03/24/2019 -When necessary Geodon and Ativan for agitation/aggression. -NRT - nicotine patch - on board for discharge planning. Court date set for next week.
[2019-04-29] MEDS: BENZOCAINE/MENTHOL LOZENG 1 EACH LOZENGE MUCOUS MEM PRN ×3 (11:56→21:04)
[2019-04-29] MEDS: guaiFENesin SYRUP 100MG/5ML 200 MG/10 ML CUP PO PRN (21:03)
[2019-04-29] MEDS: PALIPERIDONE 3 MG TAB.ER.24 PO SCH (21:03)
[2019-04-29] MEDS: LORazepam 1 MG TAB PO PRN (21:04)
[2019-04-30] MEDS: BENZOCAINE/MENTHOL LOZENG 1 EACH LOZENGE MUCOUS MEM PRN ×4 (03:41→21:13)
[2019-04-30] MEDS: guaiFENesin SYRUP 100MG/5ML 200 MG/10 ML CUP PO PRN ×3 (03:53→21:13)
[2019-04-30] MEDS: NICOTINE 21MG/24HR PATCH TRANSDERM SCH (08:46)
[2019-04-30] MEDS: PANTOPRAZOLE 40 MG TABLET PO SCH (08:46)
[2019-04-30] MEDS: ASCORBIC ACID 500 MG TAB PO SCH ×2 (08:46→21:12)
[2019-04-30] MEDS: CYANOCOBALAMIN 500 MCG TAB PO SCH (08:46)
--- NOTE | 2019-04-30 09:07 | P.PN ---
Progress Note - Text Progress Note Date: 04/30/19 Interval History: Patient was seen today wandering the hallways and agreeable to speak to the wr iter in the office. Patient again appears to be calm today and is directable during the interview. Patient continues to complain of having a cough and sore throat however does state that the symptomatic medications are helping. He states that he still anticipating going to court and wants to "fight for myself". Patient's court date is scheduled for 05/06/2019. Patient continues to have poor insight into his medications and his need for treatment and wants to be put on a lower dose of his medications. He states that his mood is "fine denies any anxiety at this time. He states that he is going to groups however only in the evening. He states that he is sleeping okay at night however did complain of waking up at times due to the coughing. At this time patient denies any suicidal or homical ideations, intent or plan. Patient denies any auditory, visual hallucinations and denies any paranoia or delusions. Patient denies any side effects from the medications and has been compliant with meds. Mental Status Exam: General Appearance: Patient appears to be older than stated age is alert and is directable. Patient has fair eye contact poor hygiene Behavior: Patient is calmly seated without any agitated behavior. Speech: Patient's speech is fluent and nonpressured. Mood/Affect: Patient reports their mood is "fine", affect is congruent Suicidality/Homicidality: Patient denies having any suicidal or homicidal ideation intent or plan. Perceptions: Patient denies any auditory or visual hallucinations. Though content/process: There is no evidence of any delusional thought content and thought process is linear and goal-directed. Memory and concentration: AOX3, grossly intact for the purposes of this session. Judgment and insight: Poor/superficial. Assessment Bipolar disorder unspecified Cannabis use disorder Plan: -Patient continues to meet criteria for inpatient psychiatric admission for symptom stabilization and safety. Patient has signed adult voluntary form and medication consent and was placed in patient's chart. -Medications: Continue with Invega 3 mg nightly dosing for mood stabilization/psychosis. Patient refused his Invega Sustenna 156 mg loading dose last week, therefore we'll wait for court order for this medication. -Patient last received his Invega Sustenna 39 mg on 03/24/2019 -When necessary Geodon and Ativan for agitation/aggression. -NRT - nicotine patch -SW on board for discharge planning. Court date set for 05/06/2019. Anticipated discharge shortly after court.
[2019-04-30] MEDS: LORazepam 1 MG TAB PO PRN (21:12)
[2019-04-30] MEDS: PALIPERIDONE 3 MG TAB.ER.24 PO SCH (21:13)
[2019-05-01] MEDS: NICOTINE 21MG/24HR PATCH TRANSDERM SCH (07:50)
[2019-05-01] MEDS: ASCORBIC ACID 500 MG TAB PO SCH ×2 (07:50→20:52)
[2019-05-01] MEDS: PANTOPRAZOLE 40 MG TABLET PO SCH (07:51)
[2019-05-01] MEDS: CYANOCOBALAMIN 500 MCG TAB PO SCH (07:51)
[2019-05-01] MEDS: guaiFENesin SYRUP 100MG/5ML 200 MG/10 ML CUP PO PRN ×2 (07:52→20:52)
[2019-05-01] MEDS: ACETAMINOPHEN TAB 325 MG TAB PO PRN (10:12)
--- NOTE | 2019-05-01 10:12 | P.PN ---
Progress Note - Text Progress Note Date: 05/01/19 Interval History: Patient was seen today wandering the hallways and agreeable to speak to the wr iter in the office. Patient claims that he is continuing to have some cough and feels tired during the day. He denies any shortness of breath. Patient claims that he feels it is mildly improving at this time. Patient spoke about doing well with regard to his mood however continues to have poor insight into his medications and his need for treatment. Patient continues to state that he is looking forward to his court date for next week. He states that his mood and anxiety have been improving. He claims that he did not go to groups yesterday as he was not feeling too well and didn't want to get other people sick. He states that he is sleeping okay at night. At this time patient denies any suicidal or homical ideations, intent or plan. Patient denies any auditory, visual hallucinations and denies any paranoia or delusions. Patient denies any side effects from the medications and has been compliant with meds. Mental Status Exam: General Appearance: Patient appears to be older than stated age is alert and is directable. Patient has fair eye contact poor hygiene Behavior: Patient is calmly seated without any agitated behavior. Speech: Patient's speech is fluent and nonpressured. Mood/Affect: Patient reports their mood is "ok", affect is congruent Suicidality/Homicidality: Patient denies having any suicidal or homicidal ideation intent or plan. Perceptions: Patient denies any auditory or visual hallucinations. Though content/process: There is no evidence of any delusional thought content and thought process is linear and goal-directed. Memory and concentration: AOX3, grossly intact for the purposes of this session. Judgment and insight: Poor/superficial. Assessment Bipolar disorder unspecified Cannabis use disorder Plan: -Patient continues to meet criteria for inpatient psychiatric admission for symptom stabilization and safety. Patient has signed adult voluntary form and medication consent and was placed in patient's chart. -Medications: Continue with Invega 3 mg nightly dosing for mood stabilization/psychosis. Patient did refuse his Invega Sustenna 156 mg loading dose last week, therefore we'll wait for court order for this medication. -Patient last received his Invega Sustenna 39 mg on 03/24/2019 -When necessary Geodon and Ativan for agitation/aggression. -NRT - nicotine patch -SW on board for discharge planning. Court date set for 05/06/2019. Anticipated discharge shortly after court.
[2019-05-01] MEDS: BENZOCAINE/MENTHOL LOZENG 1 EACH LOZENGE MUCOUS MEM PRN ×2 (13:39→20:53)
[2019-05-01] MEDS: LORazepam 1 MG TAB PO PRN (19:00)
[2019-05-01] MEDS: PALIPERIDONE 3 MG TAB.ER.24 PO SCH (20:52)
[2019-05-02] MEDS: NICOTINE 21MG/24HR PATCH TRANSDERM SCH (08:30)
[2019-05-02] MEDS: ASCORBIC ACID 500 MG TAB PO SCH ×2 (08:31→20:53)
[2019-05-02] MEDS: PANTOPRAZOLE 40 MG TABLET PO SCH (08:32)
[2019-05-02] MEDS: BENZOCAINE/MENTHOL LOZENG 1 EACH LOZENGE MUCOUS MEM PRN ×3 (08:32→20:55)
[2019-05-02] MEDS: CYANOCOBALAMIN 500 MCG TAB PO SCH (08:32)
[2019-05-02] MEDS: guaiFENesin SYRUP 100MG/5ML 200 MG/10 ML CUP PO PRN ×2 (08:32→22:58)
--- NOTE | 2019-05-02 10:57 | XR ---
EXAMINATION TYPE: XR chest 2V DATE OF EXAM: 05/02/2019 HISTORY: Cough . REFERENCE: NONE. FINDINGS: There is some consolidation in the right middle lobe and right lower lobe. There is apparen t elevation right hemidiaphragm. No definite pleural fluid is seen. The heart is not enlarged. IMPRESSION: BIBASILAR INFILTRATES.
[2019-05-02] MEDS: LEVOFLOXACIN 500 MG TAB PO SCH (14:39)
[2019-05-02] MEDS: IBUPROFEN 600 MG TAB PO PRN (14:40)
[2019-05-02] MEDS: LORazepam 1 MG TAB PO PRN (18:49)
[2019-05-02] MEDS: PALIPERIDONE 3 MG TAB.ER.24 PO SCH (20:53)
--- NOTE | 2019-05-02 20:58 | P.PN ---
Progress Note - Text Progress Note Date: 05/02/19 IDENTIFICATION DATA: 39-year-old male admitted to [facility] with medication non compliance and unpredictable behavior INTERVAL HISTORY: Patient was seen today. Says he is little bit agitated being in the hospital. He says he is waiting for his court hearing date. Reports good sleep and appetite. Reports taking all his medications. No side effects reported. MENTAL STATUS EXAMINATION: 39-year old male appears stated age in fair grooming and hygine. Is alert and oriented 4. Mood is reported as good and affect is appropriate. Speech and thought processes are linear and goal directed. thought content is negative for suicidal or homicidal ideation. Denies auditory and visual hallucinations. Denies paranoid ideations. insight and judgment are improving Assessment Assessment Bipolar disorder unspecified Cannabis use disorder Plan continue Invega 3 mg po qhs for mood stabilization/psychosis. Patient refused his Invega Sustenna 156 mg loading dose last week, -Patient last received his Invega Sustenna 39 mg on 03/24/2019
[2019-05-03] MEDS: NICOTINE 21MG/24HR PATCH TRANSDERM SCH ×2 (10:05→13:15)
[2019-05-03] MEDS: ASCORBIC ACID 500 MG TAB PO SCH ×2 (10:05→21:10)
[2019-05-03] MEDS: CYANOCOBALAMIN 500 MCG TAB PO SCH (10:05)
[2019-05-03] MEDS: PANTOPRAZOLE 40 MG TABLET PO SCH (10:06)
[2019-05-03] MEDS: LEVOFLOXACIN 500 MG TAB PO SCH (10:06)
[2019-05-03] MEDS: guaiFENesin SYRUP 100MG/5ML 200 MG/10 ML CUP PO PRN ×2 (10:07→21:34)
[2019-05-03] MEDS: BENZOCAINE/MENTHOL LOZENG 1 EACH LOZENGE MUCOUS MEM PRN ×3 (10:08→21:11)
--- NOTE | 2019-05-03 14:58 | P.PN ---
Progress Note - Text Progress Note Date: 05/03/19 IDENTIFICATION DATA: 39-year-old male admitted to [facility] with medication non compliance and unpredictable behavior INTERVAL HISTORY: Patient was seen today. Says he is stressed out and agitated being in the hospital. He says he has been taking ativan daily to stay calm. He reports disturbed sleep due to his cough. He is hoping his court hearing on Saturday will go in his favor . Denies current suicidal or homicidal ideations. MENTAL STATUS EXAMINATION: 39-year old male appears stated age in fair grooming and hygine. Is alert and oriented 4. Mood is reported as agitated and affect is appropriate. Speech and thought processes are linear and goal directed. thought content is negative for suicidal or homicidal ideation. Denies auditory and visual hallucinations. Denies paranoid ideations. insight and judgment are improving Assessment Assessment Bipolar disorder unspecified Cannabis use disorder Plan continue Invega 3 mg po qhs for mood stabilization/psychosis. Patient last received his Invega Sustenna 39 mg on 03/24/2019, but refused his second dose. patient continue to meet criteria for inpatient treatment due to his poor insight
[2019-05-03] MEDS: LORazepam 1 MG TAB PO PRN (18:31)
[2019-05-03] MEDS: PALIPERIDONE 3 MG TAB.ER.24 PO SCH (21:10)
[2019-05-03] MEDS: IBUPROFEN 600 MG TAB PO PRN (21:10)
[2019-05-04] MEDS: CYANOCOBALAMIN 500 MCG TAB PO SCH (09:09)
[2019-05-04] MEDS: NICOTINE 21MG/24HR PATCH TRANSDERM SCH (09:09)
[2019-05-04] MEDS: ASCORBIC ACID 500 MG TAB PO SCH ×2 (09:10→20:54)
[2019-05-04] MEDS: LEVOFLOXACIN 500 MG TAB PO SCH (09:10)
[2019-05-04] MEDS: PANTOPRAZOLE 40 MG TABLET PO SCH (09:10)
--- NOTE | 2019-05-04 09:14 | P.PN ---
Progress Note - Text Progress Note Date: 05/04/19 Interval History: Patient was seen today wandering the hallways after getting his morning medica tions and agreeable to speak to the software writer in the office. Patient claims that he is continuing to have some cough however he claims it is improving. He states that he did have trouble sleeping last night due to the cough. Patient denies any shortness of breath or chest pain at this time. Patient today claims that he is aggravated and appears to be irritable. He states that he feels his "rights were violated" and states that he does not want to discuss it with the software writer and claimed that he wants to have his fair shot in Court. Patient appears to be paranoid and agitated. He states that his mood is "fine" however his affect is incongruent. He denies any depressive symptoms at this time. Patient states that he wants to be released from the hospital. At this time patient denies any suicidal or homical ideations, intent or plan. Patient denies any auditory, visual hallucinations and denies any paranoia or delusions. Patient denies any side effects from the medications and has been compliant with meds. Mental Status Exam: General Appearance: Patient appears to be older than stated age is alert and is irritable/agitated today. Patient has fair eye contact poor hygiene Behavior: Patient is calmly seated without any agitated behavior. Irritable Speech: Patient's speech is fluent and nonpressured. Mood/Affect: Patient reports their mood is "fine", affect is incongruent Suicidality/Homicidality: Patient denies having any suicidal or homicidal ideation intent or plan. Perceptions: Patient denies any auditory or visual hallucinations. Though content/process: There is no evidence of any delusional thought content and thought process is linear and goal-directed. Memory and concentration: AOX3, grossly intact for the purposes of this session. Judgment and insight: Poor/superficial. Assessment Bipolar disorder unspecified Cannabis use disorder Plan: -Patient continues to meet criteria for inpatient psychiatric admission for symptom stabilization and safety. Patient has signed adult voluntary form and medication consent and was placed in patient's chart. -Medications: Continue with Invega 3 mg nightly dosing for mood stabilization/psychosis. Patient did refuse his Invega Sustenna 156 mg loading dose, therefore we'll wait for court order for this medication. -Patient last received his Invega Sustenna 39 mg on 03/24/2019 -When necessary Geodon and Ativan for agitation/aggression. -NRT - nicotine patch -Chest x-ray showed bibasilar infiltrates. Patient is continuing to cough however his vital signs appeared to be stable. Patient is refusing blood work at this time however is agreeable to see internal medicine doctor. -SW on board for discharge planning. Court date set for 05/06/2019. Anticipated discharge shortly after court.
[2019-05-04] MEDS: BENZOCAINE/MENTHOL LOZENG 1 EACH LOZENGE MUCOUS MEM PRN ×2 (16:52→20:57)
[2019-05-04] MEDS: LORazepam 1 MG TAB PO PRN (16:52)
[2019-05-04] MEDS: PALIPERIDONE 3 MG TAB.ER.24 PO SCH (20:55)
[2019-05-04] MEDS: guaiFENesin SYRUP 100MG/5ML 200 MG/10 ML CUP PO PRN (20:56)
[2019-05-05] MEDS: NICOTINE 21MG/24HR PATCH TRANSDERM SCH (07:49)
[2019-05-05] MEDS: ASCORBIC ACID 500 MG TAB PO SCH ×2 (07:49→20:44)
[2019-05-05] MEDS: PANTOPRAZOLE 40 MG TABLET PO SCH (07:50)
[2019-05-05] MEDS: CYANOCOBALAMIN 500 MCG TAB PO SCH (07:50)
[2019-05-05] MEDS: LEVOFLOXACIN 500 MG TAB PO SCH (07:50)
--- NOTE | 2019-05-05 09:57 | P.PN ---
Progress Note - Text Progress Note Date: 05/05/19 Interval History: Patient was seen today wandering the hallways after getting his breakfast and medications and agreeable to speak to the quality analyst/technical writer in the office. Patient claims that he is improving with regard to his cough and claims that he may have caught with his roommate had who was discharged. He states that he is apologetic for yesterday to quality analyst/technical writer stating that "he only got dragged into this it's not your fault". 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 He states that he slept better last night. Patient denies any shortness of breath or chest pain at this time. Patient today claims that he is less aggravated and mainly wanted to speak about his upcoming court case and how he is wanting to get a second opinion/independent evaluation on him to "not deal with [facility] anymore". He states that he feels his "rights were violated" by [facility]. He states that his mood is "ok" however his affect is incongruent. He denies any depressive symptoms at this time. At this time patient denies any suicidal or homical ideations, intent or plan. Patient denies any auditory, visual hallucinations and denies any paranoia or delusions. Patient denies any side effects from the medications and has been compliant with meds. Mental Status Exam: General Appearance: Patient appears to be older than stated age is alert and is less irritable/agitated today. Patient has fair eye contact poor hygiene Behavior: Patient is calmly seated without any agitated behavior. Speech: Patient's speech is fluent and nonpressured. Mood/Affect: Patient reports their mood is "ok", affect is incongruent Suicidality/Homicidality: Patient denies having any suicidal or homicidal ideation intent or plan. Perceptions: Patient denies any auditory or visual hallucinations. Though content/process: There is no evidence of any delusional thought content and thought process is linear and goal-directed. Memory and concentration: AOX3, grossly intact for the purposes of this session. Judgment and insight: Poor/superficial. Assessment Bipolar disorder unspecified Cannabis use disorder Plan: -Patient continues to meet criteria for inpatient psychiatric admission for symptom stabilization and safety. Patient has signed adult voluntary form and medication consent and was placed in patient's chart. -Medications: Continue with Invega 3 mg nightly dosing for mood stabilization/psychosis. Patient refused his Invega Sustenna 156 mg loading dose, therefore we'll wait for court order for this medication. -Patient last received his Invega Sustenna 39 mg on 03/24/2019 -When necessary Geodon and Ativan for agitation/aggression. -NRT - nicotine patch -Chest x-ray showed bibasilar infiltrates. Patient is continuing to cough however this is improving and his vital signs appeared to be stable. Patient was started on Levaquin by medicine. -SW on board for discharge planning. Court date set for 05/06/2019
[2019-05-05] MEDS: BENZOCAINE/MENTHOL LOZENG 1 EACH LOZENGE MUCOUS MEM PRN ×2 (12:22→20:46)
[2019-05-05] MEDS: guaiFENesin SYRUP 100MG/5ML 200 MG/10 ML CUP PO PRN ×2 (13:33→21:46)
[2019-05-05] MEDS: LORazepam 1 MG TAB PO PRN (16:27)
[2019-05-05 16:28] VITALS: BMI 38.0
[2019-05-05] MEDS: PALIPERIDONE 3 MG TAB.ER.24 PO SCH (20:44)
[2019-05-06] MEDS: ASCORBIC ACID 500 MG TAB PO SCH ×2 (07:54→20:40)
[2019-05-06] MEDS: NICOTINE 21MG/24HR PATCH TRANSDERM SCH (07:54)
[2019-05-06] MEDS: CYANOCOBALAMIN 500 MCG TAB PO SCH (07:55)
[2019-05-06] MEDS: PANTOPRAZOLE 40 MG TABLET PO SCH (07:56)
[2019-05-06] MEDS: LEVOFLOXACIN 500 MG TAB PO SCH (07:56)
[2019-05-06] MEDS: guaiFENesin SYRUP 100MG/5ML 200 MG/10 ML CUP PO PRN ×2 (07:57→20:40)
[2019-05-06] MEDS: BENZOCAINE/MENTHOL LOZENG 1 EACH LOZENGE MUCOUS MEM PRN ×3 (07:58→20:40)
--- NOTE | 2019-05-06 10:43 | P.PN ---
Progress Note - Text Progress Note Date: 05/06/19 Interval History: Patient was seen today in his room after getting his breakfast and medications and agreeable to speak to the bid writer in the office. Patient claims that he couldn't sleep last night as he was preparing for his court date today. Patient stated that he wants to continue to seek a second/independent evaluation of him and also spoke about potentially wanting a jury trial. He continues to harbor resentment and anger towards [facility] and claims that the [facility] was against him and was the main reason why he is in the hospital in the first place. Patient appears to be somewhat calmer today however when discussing court patient becomes aggravated. He states that he is improving with regard to his cough. He states that his mood is "fine" however his affect is incongruent. He denies any depressive symptoms at this time. At this time patient denies any suicidal or homical ideations, intent or plan. Patient denies any auditory, visual hallucinations and denies any paranoia or delusions. Patient denies any side effects from the medications and has been compliant with meds. Mental Status Exam: General Appearance: Patient appears to be older than stated age is alert and is less irritable/agitated today. Patient has fair eye contact poor hygiene Behavior: Patient is calmly seated without any agitated behavior. Speech: Patient's speech is fluent and nonpressured. Mood/Affect: Patient reports their mood is "fine", affect is incongruent Suicidality/Homicidality: Patient denies having any suicidal or homicidal ideation intent or plan. Perceptions: Patient denies any auditory or visual hallucinations. Though content/process: There is no evidence of any delusional thought content and thought process is linear and goal-directed. Memory and concentration: AOX3, grossly intact for the purposes of this session. Judgment and insight: Poor/superficial. Assessment Bipolar disorder unspecified Cannabis use disorder Plan: -Patient continues to meet criteria for inpatient psychiatric admission for symptom stabilization and safety. Patient has signed adult voluntary form and medication consent and was placed in patient's chart. -Medications: Continue with Invega 3 mg nightly dosing for mood stabilization/psychosis. Patient refused his Invega Sustenna 156 mg loading dose, therefore we'll wait for court order for this medication. -Patient last received his Invega Sustenna 39 mg on 03/24/2019 -When necessary Geodon and Ativan for agitation/aggression. -NRT - nicotine patch -Chest x-ray showed bibasilar infiltrates. Patient is continuing to see improvement in his cough and his vital signs appeared to be stable. We'll continue on Levaquin by medicine. -AMIE on board for discharge planning. Court date set for 05/06/2019
[2019-05-06] MEDS: PALIPERIDONE 3 MG TAB.ER.24 PO SCH (20:40)
[2019-05-06] MEDS: LORazepam 1 MG TAB PO PRN (22:37)
--- NOTE | 2019-05-07 08:21 | P.PN ---
Progress Note - Text Progress Note Date: 05/07/19 Interval History: Patient was seen today after eating breakfast and agreeable to speak to the wr iter in the office. Patient claims that he went to court yesterday which is very short and requested to have an independent evaluation which is currently waiting for. Patient states that she'll be on the unit for about another week and will be due back in court after that. Patient stated that he feels a little bit "cramped" while in the hospital and claims that his cough has mildly been improving. He claims that he was able to sleep throughout the night okay. Patient admits to taking his medications and denies any side effects. He states that his mood is about the same. He denies any depressive symptoms at this time. At this time patient denies any suicidal or homical ideations, intent or plan. Patient denies any auditory, visual hallucinations and denies any paranoia or delusions. Mental Status Exam: General Appearance: Patient appears to be older than stated age is alert and directable today. Patient has fair eye contact poor hygiene Behavior: Patient is calmly seated without any agitated behavior. Speech: Patient's speech is fluent and nonpressured. Mood/Affect: Patient reports their mood is "ok", affect is incongruent Suicidality/Homicidality: Patient denies having any suicidal or homicidal ideation intent or plan. Perceptions: Patient denies any auditory or visual hallucinations. Though content/process: There is no evidence of any delusional thought content and thought process is linear and goal-directed. Preoccupied with court. Memory and concentration: AOX3, grossly intact for the purposes of this session. Judgment and insight: Poor/superficial, improving mildly. Assessment Bipolar disorder unspecified Cannabis use disorder Plan: -Patient continues to meet criteria for inpatient psychiatric admission for symptom stabilization and safety. Patient has signed adult voluntary form and medication consent and was placed in patient's chart. -Medications: Continue with Invega 3 mg nightly dosing for mood stabilization/psychosis. Patient refused his Invega Sustenna 156 mg loading dose, therefore we'll wait for court order for this medication. -Patient last received his Invega Sustenna 39 mg on 03/24/2019 -When necessary Geodon and Ativan for agitation/aggression. -NRT - nicotine patch -Chest x-ray showed bibasilar infiltrates. Patient is continuing to see improvement in his cough and his vital signs appeared to be stable. We'll continue on Levaquin by medicine. -SW on board for discharge planning. Patient had court date on 05/06/2019 and requested an independent psychiatric evaluation which will occur sometime in the next week, patient is due in court next week.
[2019-05-07] MEDS: NICOTINE 21MG/24HR PATCH TRANSDERM SCH (08:36)
[2019-05-07] MEDS: PANTOPRAZOLE 40 MG TABLET PO SCH (08:37)
[2019-05-07] MEDS: ASCORBIC ACID 500 MG TAB PO SCH ×2 (08:37→21:18)
[2019-05-07] MEDS: CYANOCOBALAMIN 500 MCG TAB PO SCH (08:37)
[2019-05-07] MEDS: guaiFENesin SYRUP 100MG/5ML 200 MG/10 ML CUP PO PRN (12:28)
[2019-05-07] MEDS: BENZOCAINE/MENTHOL LOZENG 1 EACH LOZENGE MUCOUS MEM PRN ×3 (12:28→21:17)
[2019-05-07] MEDS: LORazepam 1 MG TAB PO PRN (21:17)
[2019-05-07] MEDS: PALIPERIDONE 3 MG TAB.ER.24 PO SCH (21:18)
[2019-05-08] MEDS: NICOTINE 21MG/24HR PATCH TRANSDERM SCH (08:47)
[2019-05-08] MEDS: guaiFENesin SYRUP 100MG/5ML 200 MG/10 ML CUP PO PRN (08:48)
[2019-05-08] MEDS: CYANOCOBALAMIN 500 MCG TAB PO SCH (08:52)
[2019-05-08] MEDS: ASCORBIC ACID 500 MG TAB PO SCH ×2 (08:52→21:37)
[2019-05-08] MEDS: PANTOPRAZOLE 40 MG TABLET PO SCH (08:54)
[2019-05-08] MEDS: BENZOCAINE/MENTHOL LOZENG 1 EACH LOZENGE MUCOUS MEM PRN ×2 (12:14→21:36)
--- NOTE | 2019-05-08 13:00 | P.PN ---
Progress Note - Text Progress Note Date: 05/08/19 Interval History: Patient was seen today wandering the hallways and agreeable to speak to the wr iter in the office. Patient claimed that he left a message for his desktop architect this morning asking for him to set up the independent psychiatric evaluation. She states that he is fine staying in the hospital "as long as it takes" as he feels that he wants [facility] "off my back". He did claim that he felt somewhat agitated earlier on just about being in the hospital and claims that he is not looking forward to having more people on the unit and in groups and claims that he may not be going to more groups because of it. He claims that his cough has mildly been improving. He claims that he was able to sleep throughout the night okay. Patient admits to taking his medications and denies any side effects. He states that his mood is "the same". He denies any depressive symptoms at this time. At this time patient denies any suicidal or homical ideations, intent or plan. Patient denies any auditory, visual hallucinations and denies any paranoia or delusions. Mental Status Exam: General Appearance: Patient appears to be older than stated age is alert and directable today. Patient has fair eye contact poor hygiene Behavior: Patient is calmly seated without any agitated behavior. Speech: Patient's speech is fluent and nonpressured. Mood/Affect: Patient reports their mood is "the same", affect is incongruent Suicidality/Homicidality: Patient denies having any suicidal or homicidal ideation intent or plan. Perceptions: Patient denies any auditory or visual hallucinations. Though content/process: There is no evidence of any delusional thought content and thought process is linear and goal-directed. Preoccupied with court. Memory and concentration: AOX3, grossly intact for the purposes of this session. Judgment and insight: Poor/superficial, improving mildly. Assessment Bipolar disorder unspecified Cannabis use disorder Plan: -Patient continues to meet criteria for inpatient psychiatric admission for symptom stabilization and safety. Patient has signed adult voluntary form and medication consent and was placed in patient's chart. -Medications: Continue with Invega 3 mg nightly dosing for mood stabilization/psychosis. Patient refused his Invega Sustenna 156 mg loading dose, therefore we'll wait for court order for this medication. -Patient last received his Invega Sustenna 39 mg on 03/24/2019 -When necessary Geodon and Ativan for agitation/aggression. -NRT - nicotine patch -Chest x-ray showed bibasilar infiltrates. Patient is continuing to see improvement in his cough and his vital signs appeared to be stable. We'll continue on Levaquin by medicine. -SW on board for discharge planning. Patient had court date on 05/06/2019 and is requesting an independent psychiatric evaluation.
[2019-05-08 14:04] LABS: Appearance,Urine Clear (Clear); Bilirubin,Urine Negative (Negative); Blood,Urine Negative (Negative); Color,Urine Yellow; Glucose,Urine (UA) Negative (Negative); Ketones,Urine Negative (Negative); Leukocyte Esterase,Urine Negative (Negative); Nitrite,Urine Negative (Negative); Protein,Urine Negative (Negative); Specific Gravity,Urine 1.013 (1.001-1.035); Urobilinogen,Urine <2.0 mg/dL (<2.0)
[2019-05-08] MEDS: LORazepam 1 MG TAB PO PRN (21:36)
[2019-05-08] MEDS: PALIPERIDONE 3 MG TAB.ER.24 PO SCH (21:37)
[2019-05-09] MEDS: CYANOCOBALAMIN 500 MCG TAB PO SCH (08:35)
[2019-05-09] MEDS: PANTOPRAZOLE 40 MG TABLET PO SCH (08:35)
[2019-05-09] MEDS: guaiFENesin SYRUP 100MG/5ML 200 MG/10 ML CUP PO PRN ×2 (08:35→20:31)
[2019-05-09] MEDS: NICOTINE 21MG/24HR PATCH TRANSDERM SCH (08:35)
[2019-05-09] MEDS: ASCORBIC ACID 500 MG TAB PO SCH ×2 (08:35→20:26)
[2019-05-09] MEDS: BENZOCAINE/MENTHOL LOZENG 1 EACH LOZENGE MUCOUS MEM PRN ×3 (08:36→19:04)
--- NOTE | 2019-05-09 09:58 | P.PN ---
Progress Note - Text Progress Note Date: 05/09/19 Interval History: Patient was seen today in his room and agreeable to speak to the technical publications writer. Mendy ent appeared to be more cooperative today and less irritable however patient did claim that he feels "agitated" as there was another patient overnight that was trying to open his door and woke him up. He also states that his difficulty sleeping with 2 other people in the room. He states that he is continuing to look forward to the independent evaluation. He states his mood is "fine". Denies any depressive symptoms at this time. Patient admits to taking his medications and denies any side effects. He states that his mood is "the same". He denies any depressive symptoms at this time. At this time patient denies any suicidal or homical ideations, intent or plan. Patient denies any auditory, visual hallucinations and denies any paranoia or delusions. Mental Status Exam: General Appearance: Patient appears to be older than stated age is alert and directable today. Patient has fair eye contact poor hygiene Behavior: Patient is calmly seated without any agitated behavior. Speech: Patient's speech is fluent and nonpressured. Mood/Affect: Patient reports their mood is "fine ", affect is congruent Suicidality/Homicidality: Patient denies having any suicidal or homicidal ideation intent or plan. Perceptions: Patient denies any auditory or visual hallucinations. Though content/process: There is no evidence of any delusional thought content and thought process is linear and goal-directed. Preoccupied with court. Memory and concentration: AOX3, grossly intact for the purposes of this session. Judgment and insight: Poor/superficial, improving mildly. Assessment Bipolar disorder unspecified Cannabis use disorder Plan: -Patient continues to meet criteria for inpatient psychiatric admission for symptom stabilization and safety. Patient has signed adult voluntary form and medication consent and was placed in patient's chart. -Medications: Continue with Invega 3 mg nightly dosing for mood stabilization/psychosis. Patient refused his Invega Sustenna 156 mg loading dos e, therefore we'll wait for court order for this medication. -Patient last received his Invega Sustenna 39 mg on 03/24/2019 -When necessary Geodon and Ativan for agitation/aggression. -NRT - nicotine patch -Chest x-ray showed bibasilar infiltrates. We'll continue on Levaquin by medicine. -SW on board for discharge planning. Patient had court date on 05/06/2019 and is now awaiting an independent psychiatric evaluation.
[2019-05-09] MEDS: PALIPERIDONE 3 MG TAB.ER.24 PO SCH (20:26)
[2019-05-09] MEDS: LORazepam 1 MG TAB PO PRN (20:27)
[2019-05-10] MEDS: NICOTINE 21MG/24HR PATCH TRANSDERM SCH (08:14)
[2019-05-10] MEDS: PANTOPRAZOLE 40 MG TABLET PO SCH (08:15)
[2019-05-10] MEDS: BENZOCAINE/MENTHOL LOZENG 1 EACH LOZENGE MUCOUS MEM PRN ×2 (08:15→21:02)
[2019-05-10] MEDS: CYANOCOBALAMIN 500 MCG TAB PO SCH (08:15)
[2019-05-10] MEDS: ASCORBIC ACID 500 MG TAB PO SCH ×2 (08:15→20:07)
--- NOTE | 2019-05-10 12:18 | P.PN ---
Progress Note - Text Progress Note Date: 05/10/19 Interval History: Patient was seen today in his room and agreeable to speak to the rfp writer. Mendy ent denied any overnight complaints and states that he is sleeping well. Patient appeared to be less irritable today and denies any feelings of agitation. He states that he's still not heard anything from his jd edwards about the independent evaluation and will be due for court this week. He states his mood is "ok". Denies any depressive symptoms at this time. Patient admits to taking his medications and denies any side effects. He states that his mood is "same". He denies any depressive symptoms at this time. At this time patient denies any suicidal or homical ideations, intent or plan. Patient denies any auditory, visual hallucinations and denies any paranoia or delusions. Mental Status Exam: General Appearance: Patient appears to be older than stated age is alert and directable today. Patient has fair eye contact poor hygiene Behavior: Patient is calmly seated without any agitated behavior. Speech: Patient's speech is fluent and nonpressured. Mood/Affect: Patient reports their mood is "ok", affect is congruent Suicidality/Homicidality: Patient denies having any suicidal or homicidal ideation intent or plan. Perceptions: Patient denies any auditory or visual hallucinations. Though content/process: There is no evidence of any delusional thought content and thought process is linear and goal-directed. Preoccupied with court. Memory and concentration: AOX3, grossly intact for the purposes of this session. Judgment and insight: Poor/superficial, improving mildly. Assessment Bipolar disorder unspecified Cannabis use disorder Plan: -Patient continues to meet criteria for inpatient psychiatric admission for symptom stabilization and safety. Patient has signed adult voluntary form and medication consent and was placed in patient's chart. -Medications: Continue with Invega 3 mg nightly dosing for mood stabilization/psychosis. Patient refused his Invega Sustenna 156 mg loading dose, therefore we'll wait for court order for this medication. -Patient last received his Invega Sustenna 39 mg on 03/24/2019 -When necessary Geodon and Ativan for agitation/aggression. -NRT - nicotine patch -Chest x-ray showed bibasilar infiltrates. We'll continue on Levaquin by medicine. -SW on board for discharge planning. Patient had court date on 05/06/2019 and is now awaiting an independent psychiatric evaluation.
[2019-05-10] MEDS: PALIPERIDONE 3 MG TAB.ER.24 PO SCH (20:08)
[2019-05-10] MEDS: guaiFENesin SYRUP 100MG/5ML 200 MG/10 ML CUP PO PRN (20:09)
[2019-05-10] MEDS: LORazepam 1 MG TAB PO PRN (20:10)
[2019-05-11] MEDS: NICOTINE 21MG/24HR PATCH TRANSDERM SCH (08:39)
[2019-05-11] MEDS: CYANOCOBALAMIN 500 MCG TAB PO SCH (08:40)
[2019-05-11] MEDS: ASCORBIC ACID 500 MG TAB PO SCH ×2 (08:40→20:51)
[2019-05-11] MEDS: BENZOCAINE/MENTHOL LOZENG 1 EACH LOZENGE MUCOUS MEM PRN ×3 (08:41→20:52)
[2019-05-11] MEDS: PANTOPRAZOLE 40 MG TABLET PO SCH (08:41)
--- NOTE | 2019-05-11 09:03 | P.PN ---
Progress Note - Text Progress Note Date: 05/11/19 Interval History: Patient was seen today wandering the hallways and was agreeable to speak to the specifications writer in the office. Patient denied any overnight complaints and states that he is sleeping well. He did state though that this morning he is feeling as his ears are plugged and wonders if it's because of wax buildup. He states that the symptoms of his cough are resolved and he is feeling much better. Patient appeared to be less irritable today and denies any feelings of agitation or any depression. He states that he's still not heard anything from his flatware maker about the independent evaluation and claims that he called her again this morning. Patient claims that he'll be due for court again on Saturday and is looking forward to it. He states his mood is "the same". Patient admits to taking his medications and denies any side effects. At this time patient denies any suicidal or homical ideations, intent or plan. Patient denies any auditory, visual hallucinations and denies any paranoia or delusions. Mental Status Exam: General Appearance: Patient appears to be older than stated age is alert and directable today. Patient has fair eye contact poor hygiene Behavior: Patient is calmly seated without any agitated behavior. Speech: Patient's speech is fluent and nonpressured. Mood/Affect: Patient reports their mood is "the same", affect is congruent Suicidality/Homicidality: Patient denies having any suicidal or homicidal ideation intent or plan. Perceptions: Patient denies any auditory or visual hallucinations. Though content/process: There is no evidence of any delusional thought content and thought process is linear and goal-directed. Memory and concentration: AOX3, grossly intact for the purposes of this session. Judgment and insight: Poor/superficial, improving mildly. Assessment Bipolar disorder unspecified Cannabis use disorder Plan: -Patient continues to meet criteria for inpatient psychiatric admission for symptom stabilization and safety. Patient has signed adult voluntary form and medication consent and was placed in patient's chart. -Medications: Continue with Invega 3 mg nightly for mood stabilization/psychosis. Patient refused his Invega Sustenna 156 mg loading dose, therefore we'll continue to wait for court order for this medication. -Patient last received his Invega Sustenna 39 mg on 03/24/2019 -When necessary Geodon and Ativan for agitation/aggression. -NRT - nicotine patch -Chest x-ray showed bibasilar infiltrates. Antibiotic Levaquin completed and patient is feeling better with regards to his pneumonia and cough. -AMIE on board for discharge planning. Patient had court date on 05/06/2019 and is now awaiting an independent psychiatric evaluation. Patient is due for court on Saturday.
[2019-05-11] MEDS: guaiFENesin SYRUP 100MG/5ML 200 MG/10 ML CUP PO PRN (20:52)
[2019-05-11] MEDS: PALIPERIDONE 3 MG TAB.ER.24 PO SCH (20:52)
[2019-05-11] MEDS: LORazepam 1 MG TAB PO PRN (20:52)
[2019-05-12] MEDS: ASCORBIC ACID 500 MG TAB PO SCH ×2 (08:24→20:12)
[2019-05-12] MEDS: PANTOPRAZOLE 40 MG TABLET PO SCH (08:24)
[2019-05-12] MEDS: CYANOCOBALAMIN 500 MCG TAB PO SCH (08:25)
[2019-05-12] MEDS: guaiFENesin SYRUP 100MG/5ML 200 MG/10 ML CUP PO PRN ×2 (08:25→21:12)
[2019-05-12] MEDS: BENZOCAINE/MENTHOL LOZENG 1 EACH LOZENGE MUCOUS MEM PRN ×2 (08:25→20:13)
[2019-05-12] MEDS: NICOTINE 21MG/24HR PATCH TRANSDERM SCH (08:25)
--- NOTE | 2019-05-12 11:31 | P.PN ---
Progress Note - Text Progress Note Date: 05/12/19 Interval History: Patient was seen today wandering the hallways and was agreeable to speak to the va underwriter in the office. Patient denied any overnight complaints and claims that he is doing well. He states that his mood is more "stable" on the medications and is thankful for it. He states that he is continuing to wait for the court date and claims that his psychologist research assistant has not found him a independent hairspring inspector and thinks that his psychologist research assistant is not working to help him" dragging her feet". Patient states that he does not want to be involved with [facility] and is considering changing his address to another location to get out of [facility]. Patient appeared to be less irritable today and denies any feelings of agitation or any depression. Patient claims that he'll be due for court again tomorrow and is looking forward to it. He states his mood is "fine". Patient admits to taking his medications and denies any side effects. At this time patient denies any suicidal or homical ideations, intent or plan. Patient denies any auditory, visual hallucinations and denies any paranoia or delusions. Mental Status Exam: General Appearance: Patient appears to be older than stated age is alert and directable today. Patient has fair eye contact poor hygiene Behavior: Patient is calmly seated without any agitated behavior. Speech: Patient's speech is fluent and nonpressured. Mood/Affect: Patient reports their mood is "fine", affect is congruent Suicidality/Homicidality: Patient denies having any suicidal or homicidal ideation intent or plan. Perceptions: Patient denies any auditory or visual hallucinations. Though content/process: There is no evidence of any delusional thought content and thought process is linear and goal-directed. Memory and concentration: AOX3, grossly intact for the purposes of this session. Judgment and insight: Poor/superficial, improving mildly. Assessment Bipolar disorder unspecified Cannabis use disorder Plan: -Patient continues to meet criteria for inpatient psychiatric admission for symptom stabilization and safety. Patient has signed adult voluntary form and medication consent and was placed in patient's chart. -Medications: Continue with Invega 3 mg nightly for mood stabilization/psychosis. Patient refused his Invega Sustenna 156 mg loading dose, therefore we'll continue to wait for court order for this medication. -Patient last received his Invega Sustenna 39 mg on 03/24/2019 -When necessary Geodon and Ativan for agitation/aggression. -NRT - nicotine patch -Chest x-ray showed bibasilar infiltrates. Antibiotic Levaquin completed and patient is feeling better with regards to his pneumonia and cough. -AMIE on board for discharge planning. Patient had court date on 05/06/2019 and is now awaiting an independent psychiatric evaluation. Patient is due for court on Saturday.
[2019-05-12] MEDS: IBUPROFEN 600 MG TAB PO PRN (15:10)
[2019-05-12] MEDS: ACETAMINOPHEN TAB 325 MG TAB PO PRN ×2 (15:11→20:12)
[2019-05-12] MEDS: LORazepam 1 MG TAB PO PRN (20:12)
[2019-05-12] MEDS: PALIPERIDONE 3 MG TAB.ER.24 PO SCH (20:12)
[2019-05-13] MEDS: IBUPROFEN 600 MG TAB PO PRN ×2 (06:47→20:19)
[2019-05-13] MEDS: ACETAMINOPHEN TAB 325 MG TAB PO PRN ×2 (06:47→20:23)
[2019-05-13] MEDS: ASCORBIC ACID 500 MG TAB PO SCH ×2 (08:35→20:16)
[2019-05-13] MEDS: NICOTINE 21MG/24HR PATCH TRANSDERM SCH (08:35)
[2019-05-13] MEDS: CYANOCOBALAMIN 500 MCG TAB PO SCH (08:36)
[2019-05-13] MEDS: PANTOPRAZOLE 40 MG TABLET PO SCH (08:36)
[2019-05-13] MEDS: BENZOCAINE/MENTHOL LOZENG 1 EACH LOZENGE MUCOUS MEM PRN ×3 (08:37→20:17)
[2019-05-13] MEDS: guaiFENesin SYRUP 100MG/5ML 200 MG/10 ML CUP PO PRN (09:00)
--- NOTE | 2019-05-13 10:04 | P.PN ---
Progress Note - Text Progress Note Date: 05/13/19 Interval History: Patient was seen laying down in his bed and was agreeable to speak to the senior writer in the office. Patient denied any overnight complaints and states that he is doing "as well as I can". He states that his mood is "the same" and spoke about him not hearing anything from his blade filer and doesn't know what's going to happen with court today. He claims that his court is at 2 PM and he feels that nothing is going to happen today. Patient continues to state that he wants to fight against [facility] and feels that "my rights were violated" and wanted to get his psychiatric services from another place. Patient appeared to be less irritable today and denies any feelings of agitation or any depression. He states his mood is "fine". He claims that he slept through the night. Patient admits to taking his medications and denies any side effects. At this time patient denies any suicidal or homical ideations, intent or plan. Patient denies any auditory, visual hallucinations and denies any paranoia or delusions. Mental Status Exam: General Appearance: Patient appears to be older than stated age is alert and directable today. Patient has fair eye contact poor hygiene Behavior: Patient is calmly seated without any agitated behavior. Speech: Patient's speech is fluent and nonpressured. Mood/Affect: Patient reports their mood is "fine", affect is congruent Suicidality/Homicidality: Patient denies having any suicidal or homicidal ideation intent or plan. Perceptions: Patient denies any auditory or visual hallucinations. Though content/process: There is no evidence of any delusional thought content and thought process is linear and goal-directed. Memory and concentration: AOX3, grossly intact for the purposes of this session. Judgment and insight: Poor/superficial, improving mildly. Assessment Bipolar disorder unspecified Cannabis use disorder Plan: -Patient continues to meet criteria for inpatient psychiatric admission for symptom stabilization and safety. Patient has signed adult voluntary form and medication consent and was placed in patient's chart. -Medications: Continue with Invega 3 mg nightly for mood stabilization/psychosis. Patient refused his Invega Sustenna 156 mg loading dose, therefore we'll continue to wait for court order for this medication. -Patient last received his Invega Sustenna 39 mg on 03/24/2019 -When necessary Geodon and Ativan for agitation/aggression. -NRT - nicotine patch -Chest x-ray showed bibasilar infiltrates. Antibiotic Levaquin completed and patient is feeling better with regards to his pneumonia and cough. -AMIE on board for discharge planning. Patient had court date initially on 05/06/2019 and is now awaiting an independent psychiatric evaluation. Patient is due for court today.
[2019-05-13] MEDS: PALIPERIDONE 3 MG TAB.ER.24 PO SCH (20:17)
[2019-05-13] MEDS: LORazepam 1 MG TAB PO PRN (20:19)
[2019-05-14] MEDS: CYANOCOBALAMIN 500 MCG TAB PO SCH (08:21)
[2019-05-14] MEDS: ASCORBIC ACID 500 MG TAB PO SCH ×2 (08:21→20:24)
[2019-05-14] MEDS: NICOTINE 21MG/24HR PATCH TRANSDERM SCH (08:21)
[2019-05-14] MEDS: PANTOPRAZOLE 40 MG TABLET PO SCH (08:21)
[2019-05-14] MEDS: IBUPROFEN 600 MG TAB PO PRN ×2 (08:23→20:27)
[2019-05-14] MEDS: ACETAMINOPHEN TAB 325 MG TAB PO PRN ×2 (08:23→20:28)
--- NOTE | 2019-05-14 11:31 | P.PN ---
Progress Note - Text Progress Note Date: 05/14/19 Interval History: Patient was seen walking the hallways and was agreeable to speak to the report writer in the office. Patient complained today of having "clogged ears" and states that he feels irritable and that nobody is helping him. He states that his mood is "the same" and spoke about hearing from court yesterday and also his community chest officer that she has an independent evaluation booked for him on Saturday. He continues to feel strongly about not being on a court order and states that he does not want to be involved with [facility] and wants the freedom to choose his own doctor and his own medications. Patient continues to state that he wants to fight against [facility] and feels that "my rights were violated". Patient appeared to be irritable today however denies any feelings of depression. He states his mood is "the same". He claims that he slept through the night. Patient admits to taking his medications and denies any side effects. At this time patient denies any suicidal or homical ideations, intent or plan. Patient denies any auditory, visual hallucinations and denies any paranoia or delusions. Mental Status Exam: General Appearance: Patient appears to be older than stated age is alert and directable today. Patient has fair eye contact poor hygiene Behavior: Patient is calmly seated without any agitated behavior. Irritable today. Speech: Patient's speech is fluent and nonpressured. Mood/Affect: Patient reports their mood is "the same", affect is congruent Suicidality/Homicidality: Patient denies having any suicidal or homicidal ideation intent or plan. Perceptions: Patient denies any auditory or visual hallucinations. Though content/process: There is no evidence of any delusional thought content and thought process is linear and goal-directed. Memory and concentration: AOX3, grossly intact for the purposes of this session. Judgment and insight: Poor/superficial, improving mildly. Assessment Bipolar disorder unspecified Cannabis use disorder Plan: -Patient continues to meet criteria for inpatient psychiatric admission for symptom stabilization and safety. Patient has signed adult voluntary form and medication consent and was placed in patient's chart. -Medications: Continue with Invega 3 mg nightly for mood stabilization/psychosis. Patient refused his Invega Sustenna 156 mg loading dose, therefore we'll continue to wait for court order for this medication. -Patient last received his Invega Sustenna 39 mg on 03/24/2019 -When necessary Geodon and Ativan for agitation/aggression. -NRT - nicotine patch -SW on board for discharge planning. Patient had court date initially on 05/06/2019 and is now awaiting an independent psychiatric evaluation scheduled for Saturday.
[2019-05-14] MEDS: guaiFENesin SYRUP 100MG/5ML 200 MG/10 ML CUP PO PRN ×2 (12:03→20:25)
[2019-05-14] MEDS: BENZOCAINE/MENTHOL LOZENG 1 EACH LOZENGE MUCOUS MEM PRN ×2 (12:04→20:31)
[2019-05-14] MEDS: CARBAMIDE PEROXIDE 6.5% DROPS 15 ML BTL BOTH EARS SCH ×2 (12:43→20:28)
[2019-05-14] MEDS: PALIPERIDONE 3 MG TAB.ER.24 PO SCH (20:25)
[2019-05-14] MEDS: LORazepam 1 MG TAB PO PRN (20:27)
[2019-05-15] MEDS: ASCORBIC ACID 500 MG TAB PO SCH ×2 (09:25→20:13)
[2019-05-15] MEDS: NICOTINE 21MG/24HR PATCH TRANSDERM SCH (09:26)
[2019-05-15] MEDS: CYANOCOBALAMIN 500 MCG TAB PO SCH (09:26)
[2019-05-15] MEDS: CARBAMIDE PEROXIDE 6.5% DROPS 15 ML BTL BOTH EARS SCH ×2 (09:26→22:34)
[2019-05-15] MEDS: guaiFENesin SYRUP 100MG/5ML 200 MG/10 ML CUP PO PRN ×2 (09:27→20:14)
[2019-05-15] MEDS: PANTOPRAZOLE 40 MG TABLET PO SCH (09:27)
[2019-05-15] MEDS: BENZOCAINE/MENTHOL LOZENG 1 EACH LOZENGE MUCOUS MEM PRN ×2 (09:28→20:10)
[2019-05-15] MEDS: IBUPROFEN 600 MG TAB PO PRN ×2 (09:30→20:11)
[2019-05-15] MEDS: ACETAMINOPHEN TAB 325 MG TAB PO PRN ×2 (09:31→20:12)
--- NOTE | 2019-05-15 10:40 | P.PN ---
Progress Note - Text Progress Note Date: 05/15/19 Interval History: Patient was seen in his room and was agreeable to speak to the script writer in the o ffice. Patient stated today that he is "doing as well as I can I guess" referring to his prolonged hospitalization and court process. Patient states that he has not heard back from his fish skinning machine feeder about any new events and is anticipating the independent evaluation to occur on Saturday. He states that his mood is "the same" and denied any depressive symptoms at this time. Patient appears to be less irritable this morning over does appear to be frustrated. He continues to feel strongly about not being on a court order and states that he does not want to be involved with [facility]. He claims that he slept through the night. He states that he is only going to afternoon groups and feels frustrated with the morning groups. Patient admits to taking his medications and denies any side effects. At this time patient denies any suicidal or homical ideations, intent or plan. Patient denies any auditory, visual hallucinations and denies any paranoia or delusions. Mental Status Exam: General Appearance: Patient appears to be older than stated age is alert and more directable today. Patient has fair eye contact poor hygiene Behavior: Patient is calmly seated without any agitated behavior. Speech: Patient's speech is fluent and nonpressured. Mood/Affect: Patient reports their mood is "the same", affect is congruent Suicidality/Homicidality: Patient denies having any suicidal or homicidal ideation intent or plan. Perceptions: Patient denies any auditory or visual hallucinations. Though content/process: There is no evidence of any delusional thought content and thought process is linear and goal-directed. Memory and concentration: AOX3, grossly intact for the purposes of this session. Judgment and insight: Poor/superficial, improving mildly. Assessment Bipolar disorder unspecified Cannabis use disorder Plan: -Patient continues to meet criteria for inpatient psychiatric admission for symptom stabilization and safety. Patient has signed adult voluntary form and medication consent and was placed in patient's chart. -Medications: Continue with Invega 3 mg nightly for mood stabilization/psychosis. Patient refused his Invega Sustenna 156 mg loading dose, therefore we'll continue to wait for court order for this medication. -Patient last received his Invega Sustenna 39 mg on 03/24/2019 -When necessary Geodon and Ativan for agitation/aggression. -NRT - nicotine patch -AMIE on board for discharge planning. Patient had court date initially on 05/06/2019, now awaiting an independent psychiatric evaluation scheduled for Saturday.
[2019-05-15] MEDS: LORazepam 1 MG TAB PO PRN (20:10)
[2019-05-15] MEDS: PALIPERIDONE 3 MG TAB.ER.24 PO SCH (20:10)
[2019-05-16] MEDS: ASCORBIC ACID 500 MG TAB PO SCH ×2 (09:18→20:14)
[2019-05-16] MEDS: NICOTINE 21MG/24HR PATCH TRANSDERM SCH (09:19)
[2019-05-16] MEDS: CARBAMIDE PEROXIDE 6.5% DROPS 15 ML BTL BOTH EARS SCH (09:19)
[2019-05-16] MEDS: CYANOCOBALAMIN 500 MCG TAB PO SCH (09:19)
[2019-05-16] MEDS: BENZOCAINE/MENTHOL LOZENG 1 EACH LOZENGE MUCOUS MEM PRN ×2 (09:19→20:13)
[2019-05-16] MEDS: PANTOPRAZOLE 40 MG TABLET PO SCH (09:19)
[2019-05-16] MEDS: ACETAMINOPHEN TAB 325 MG TAB PO PRN ×2 (09:20→20:13)
[2019-05-16] MEDS: IBUPROFEN 600 MG TAB PO PRN (09:20)
[2019-05-16] MEDS: guaiFENesin SYRUP 100MG/5ML 200 MG/10 ML CUP PO PRN ×2 (09:21→20:46)
--- NOTE | 2019-05-16 16:25 | P.PN ---
Progress Note - Text Progress Note Date: 05/16/19 Interval history: [place] [facility] [place] He relates he is compliant with taking the inpatient unit. He is awaiting a court hearing, relays he also has an independent evaluation coming up. He feels like overall his mood is holding up pretty well. He does not seem to voice any adverse psychotropic medication side effects. Mental status exam: He is alert and cooperative with the interview. His speech is fluent, not rapid or pressured. Thought processes are organized. He denies any him hallucinations. Reports feeling frustrated times but denies any thoughts of harm to self or others. He does not show any current agitation. Plan: Patient will be maintained on current psychotropic medication regimen. Continue to monitor for any medication side effects and monitor his ongoing response to treatment.
[2019-05-16] MEDS: LORazepam 1 MG TAB PO PRN (20:12)
[2019-05-16] MEDS: PALIPERIDONE 3 MG TAB.ER.24 PO SCH (20:14)
[2019-05-17] MEDS: CARBAMIDE PEROXIDE 6.5% DROPS 15 ML BTL BOTH EARS SCH ×3 (04:18→22:26)
[2019-05-17] MEDS: ASCORBIC ACID 500 MG TAB PO SCH ×2 (08:26→20:10)
[2019-05-17] MEDS: BENZOCAINE/MENTHOL LOZENG 1 EACH LOZENGE MUCOUS MEM PRN ×3 (08:27→20:08)
[2019-05-17] MEDS: CYANOCOBALAMIN 500 MCG TAB PO SCH (08:27)
[2019-05-17] MEDS: PANTOPRAZOLE 40 MG TABLET PO SCH (08:27)
[2019-05-17] MEDS: ACETAMINOPHEN TAB 325 MG TAB PO PRN ×3 (08:28→20:10)
[2019-05-17] MEDS: IBUPROFEN 600 MG TAB PO PRN ×2 (08:28→20:07)
[2019-05-17] MEDS: NICOTINE 21MG/24HR PATCH TRANSDERM SCH (09:11)
[2019-05-17] MEDS: guaiFENesin SYRUP 100MG/5ML 200 MG/10 ML CUP PO PRN ×2 (09:19→20:11)
--- NOTE | 2019-05-17 13:08 | P.PN ---
Progress Note - Text Progress Note Date: 05/17/19 Interval history: Patient is seen in [facility] again today. He says he slept about 8 hours last night and slept another 2 hours today. He has been eating well. He does not verbalize any adverse psychotropic medication side effects. Mental status exam: He is alert and cooperative with the interview. His speech is fluent, not rapid or pressured. Thought processes are organized. His mood he describes as "agitated but okay for the situation." He has not verbalize any thoughts of harm to self others, no evidence of active psychosis or agitation. Plan: Patient will be maintained on current psychotropic medication regimen. Continue to monitor for any medication side effects monitor his ongoing response to treatment.
[2019-05-17] MEDS: LORazepam 1 MG TAB PO PRN (20:07)
[2019-05-17] MEDS: PALIPERIDONE 3 MG TAB.ER.24 PO SCH (20:08)
[2019-05-18] MEDS: CYANOCOBALAMIN 500 MCG TAB PO SCH (09:02)
[2019-05-18] MEDS: NICOTINE 21MG/24HR PATCH TRANSDERM SCH (09:02)
[2019-05-18] MEDS: PANTOPRAZOLE 40 MG TABLET PO SCH (09:02)
[2019-05-18] MEDS: ASCORBIC ACID 500 MG TAB PO SCH ×2 (09:03→21:50)
[2019-05-18] MEDS: ACETAMINOPHEN TAB 325 MG TAB PO PRN ×3 (09:04→21:51)
[2019-05-18] MEDS: BENZOCAINE/MENTHOL LOZENG 1 EACH LOZENGE MUCOUS MEM PRN ×3 (09:05→21:53)
[2019-05-18] MEDS: IBUPROFEN 600 MG TAB PO PRN ×2 (09:05→21:52)
--- NOTE | 2019-05-18 09:21 | P.PN ---
Progress Note - Text Progress Note Date: 05/18/19 Interval History: Patient was seen wandering the hallways and was agreeable to speak to the scenario writer in the office. Patient stated today that he is "doing the best I can" and refer testing positive with regards to the court case and his time here on the unit. Patient acknowledged that the unit is currently full and is trying to deal with his anxiety being around so many people. His independent evaluation scheduled for tomorrow and he is looking forward to it. He states that his mood is "fine" and denied any depressive symptoms at this time. Patient appears to be less irritable today. He continues to feel strongly about not being on a court order. He claims that he slept through the night. He states that he is only going to afternoon groups. Patient admits to taking his medications and denies any side effects. At this time patient denies any suicidal or homical ideations, intent or plan. Patient denies any auditory, visual hallucinations and denies any paranoia or delusions. Mental Status Exam: General Appearance: Patient appears to be older than stated age is alert and more directable today. Patient has fair eye contact poor hygiene Behavior: Patient is calmly seated without any agitated behavior. Speech: Patient's speech is fluent and nonpressured. Mood/Affect: Patient reports their mood is "fine", affect is congruent Suicidality/Homicidality: Patient denies having any suicidal or homicidal ideation intent or plan. Perceptions: Patient denies any auditory or visual hallucinations. Though content/process: There is no evidence of any delusional thought content and thought process is linear and goal-directed. Memory and concentration: AOX3, grossly intact for the purposes of this session. Judgment and insight: Poor/superficial, improving mildly. Assessment Bipolar disorder unspecified Cannabis use disorder Plan: -Patient continues to meet criteria for inpatient psychiatric admission for symptom stabilization and safety. Patient has signed adult voluntary form and medication consent and was placed in patient's chart. -Medications: Continue with Invega 3 mg nightly for mood stabilization/psychosis. Patient refused his Invega Sustenna 156 mg loading dose, therefore we'll continue to wait for court order for this medication. -Patient last received his Invega Sustenna 39 mg on 03/24/2019 -When necessary Geodon and Ativan for agitation/aggression. -NRT - nicotine patch -SW on board for discharge planning. Patient had court date initially on 04/21, now awaiting an independent psychiatric evaluation scheduled for tomorrow.
[2019-05-18] MEDS: guaiFENesin SYRUP 100MG/5ML 200 MG/10 ML CUP PO PRN ×2 (09:36→21:54)
[2019-05-18] MEDS: PALIPERIDONE 3 MG TAB.ER.24 PO SCH (21:51)
[2019-05-18] MEDS: LORazepam 1 MG TAB PO PRN (21:53)
[2019-05-19] MEDS: NICOTINE 21MG/24HR PATCH TRANSDERM SCH (09:25)
[2019-05-19] MEDS: BENZOCAINE/MENTHOL LOZENG 1 EACH LOZENGE MUCOUS MEM PRN ×3 (09:28→20:13)
[2019-05-19] MEDS: IBUPROFEN 600 MG TAB PO PRN ×2 (09:29→20:12)
[2019-05-19] MEDS: CYANOCOBALAMIN 500 MCG TAB PO SCH (09:30)
[2019-05-19] MEDS: PANTOPRAZOLE 40 MG TABLET PO SCH (09:30)
[2019-05-19] MEDS: ASCORBIC ACID 500 MG TAB PO SCH ×2 (09:30→20:11)
--- NOTE | 2019-05-19 10:07 | P.PN ---
Progress Note - Text Progress Note Date: 05/19/19 Interval History: Patient was seen wandering the hallways near the nurse's station and was agree able to speak to the writer editor in the office. Patient stated that today he is looking forward to the independent evaluation by the doctor. He states that he feels somewhat nervous for however wants to continue fighting for his rights. He continues to state that he is "exhausted" and when asked to elaborate more on it he relates it back to being in the hospital. He states that his mood is "the same" and denied any depressive symptoms at this time. Patient appears to be less irritable today. He continues to feel strongly about not being on a court order. He claims that he slept through the night and reports no issues overnight. He states that he has not been going to groups yesterday and today. Patient admits to taking his medications and denies any side effects. At this time patient denies any suicidal or homical ideations, intent or plan. Patient denies any auditory, visual hallucinations and denies any paranoia or delusions. Mental Status Exam: General Appearance: Patient appears to be older than stated age is alert and more directable today. Patient has fair eye contact poor hygiene Behavior: Patient is calmly seated without any agitated behavior. Speech: Patient's speech is fluent and nonpressured. Mood/Affect: Patient reports their mood is "the same", affect is congruent Suicidality/Homicidality: Patient denies having any suicidal or homicidal ideation intent or plan. Perceptions: Patient denies any auditory or visual hallucinations. Though content/process: There is no evidence of any delusional thought content and thought process is linear and goal-directed. Memory and concentration: AOX3, grossly intact for the purposes of this session. Judgment and insight: Poor/superficial, improving mildly. Assessment Bipolar disorder unspecified Cannabis use disorder Plan: -Patient continues to meet criteria for inpatient psychiatric admission for symptom stabilization and safety. Patient has signed adult voluntary form and medication consent and was placed in patient's chart. -Medications: Continue with Invega 3 mg nightly for mood stabilization/psychosis. Patient refused his Invega Sustenna 156 mg loading dose, therefore we'll continue to wait for court order for this medication. -Patient last received his Invega Sustenna 39 mg on 03/24/2019 -When necessary Geodon and Ativan for agitation/aggression. -NRT - nicotine patch -SW on board for discharge planning. Patient had court date initially on 05/06/2019, now awaiting an independent psychiatric evaluation scheduled for today
[2019-05-19] MEDS: guaiFENesin SYRUP 100MG/5ML 200 MG/10 ML CUP PO PRN ×2 (10:10→22:20)
[2019-05-19] MEDS: ACETAMINOPHEN TAB 325 MG TAB PO PRN ×2 (16:13→20:12)
[2019-05-19] MEDS: LORazepam 1 MG TAB PO PRN (20:12)
[2019-05-19] MEDS: PALIPERIDONE 3 MG TAB.ER.24 PO SCH (20:13)
[2019-05-20] MEDS: CYANOCOBALAMIN 500 MCG TAB PO SCH (09:33)
[2019-05-20] MEDS: ASCORBIC ACID 500 MG TAB PO SCH ×2 (09:33→20:26)
[2019-05-20] MEDS: BENZOCAINE/MENTHOL LOZENG 1 EACH LOZENGE MUCOUS MEM PRN ×2 (09:34→20:31)
[2019-05-20] MEDS: NICOTINE 21MG/24HR PATCH TRANSDERM SCH (09:34)
[2019-05-20] MEDS: PANTOPRAZOLE 40 MG TABLET PO SCH (09:34)
[2019-05-20] MEDS: IBUPROFEN 600 MG TAB PO PRN ×2 (09:35→20:28)
[2019-05-20] MEDS: ACETAMINOPHEN TAB 325 MG TAB PO PRN ×2 (09:35→20:27)
[2019-05-20] MEDS: guaiFENesin SYRUP 100MG/5ML 200 MG/10 ML CUP PO PRN ×2 (09:36→22:27)
--- NOTE | 2019-05-20 12:24 | P.PN ---
Progress Note - Text Progress Note Date: 05/20/19 Interval History: Patient was seen today wandering the hallways and was agreeable to speak to the sql report writer in the office. Patient stated that he is feeling fine today however appeared to be visibly upset. Patient went on to claim that the independent evaluation "didn't go the way that I wanted to" and went on to explain that he feels that he does not have a case in court and shouldn't go on to jury trial. Patient states that he feels his rights were violated however is claiming that he is more open to going through with the court order. Patient was more irritable today however states that his mood is "the same" and denied any depressive symptoms at this time. He claims that he slept through the night and reports no issues overnight. He states that he has not been going to groups yesterday and today. Patient admits to taking his medications and denies any side effects. At this time patient denies any suicidal or homical ideations, intent or plan. Patient denies any auditory, visual hallucinations and denies any paranoia or delusions. Mental Status Exam: General Appearance: Patient appears to be older than stated age is alert and more directable today. Patient has fair eye contact poor hygiene Behavior: Patient is calmly seated without any agitated behavior. Speech: Patient's speech is fluent and nonpressured. Mood/Affect: Patient reports their mood is "the same", affect is congruent Suicidality/Homicidality: Patient denies having any suicidal or homicidal ideation intent or plan. Perceptions: Patient denies any auditory or visual hallucinations. Though content/process: There is no evidence of any delusional thought content and thought process is linear and goal-directed. Memory and concentration: AOX3, grossly intact for the purposes of this session. Judgment and insight: Poor/superficial, improving mildly. Assessment Bipolar disorder unspecified Cannabis use disorder Plan: -Patient continues to meet criteria for inpatient psychiatric admission for symptom stabilization and safety. Patient has signed adult voluntary form and medication consent and was placed in patient's chart. -Medications: Continue with Invega 3 mg nightly for mood stabilization/psychosis. Patient refused his Invega Sustenna 156 mg loading dose, therefore we'll continue to wait for court order for this medication. -Patient last received his Invega Sustenna 39 mg on 03/24/2019 -When necessary Geodon and Ativan for agitation/aggression. -NRT - nicotine patch - on board for discharge planning. Patient had court date initially on 05/06/2019, and patient had his independent psychiatric evaluation on 05/19/2019. Awaiting for patient to be an sign off on the court order and will proceed with injection and discharge shortly after.
[2019-05-20] MEDS: PALIPERIDONE 3 MG TAB.ER.24 PO SCH (20:26)
[2019-05-20] MEDS: LORazepam 1 MG TAB PO PRN (20:29)
[2019-05-21] MEDS: CYANOCOBALAMIN 500 MCG TAB PO SCH (10:00)
[2019-05-21] MEDS: PANTOPRAZOLE 40 MG TABLET PO SCH (10:00)
[2019-05-21] MEDS: ASCORBIC ACID 500 MG TAB PO SCH ×2 (10:00→20:37)
[2019-05-21] MEDS: BENZOCAINE/MENTHOL LOZENG 1 EACH LOZENGE MUCOUS MEM PRN ×2 (10:00→20:38)
[2019-05-21] MEDS: NICOTINE 21MG/24HR PATCH TRANSDERM SCH (10:00)
[2019-05-21] MEDS: IBUPROFEN 600 MG TAB PO PRN ×2 (10:01→20:37)
[2019-05-21] MEDS: guaiFENesin SYRUP 100MG/5ML 200 MG/10 ML CUP PO PRN ×2 (10:01→22:15)
[2019-05-21] MEDS: ACETAMINOPHEN TAB 325 MG TAB PO PRN ×2 (10:02→20:38)
--- NOTE | 2019-05-21 12:02 | P.PN ---
Progress Note - Text Progress Note Date: 05/21/19 Interval History: Patient was seen today in his room and was agreeable to speak to the promotion writer in the office. Patient stated that he is isolating himself more as he feels anxious in groups and claims that he does not want to go to any groups at this time or today. He states that he is still upset about how his case went through and his evaluation. Patient knows about his upcoming court date on May 27. He continues to be frustrated with the drawing checker and states that he is believing her voice messages however she has not cut back to him. Patient was last irritable today and claims that his mood is "the same". He denies any depressive symptoms at this time. He claims that he slept through the night and reports no issues overnight. Patient admits to taking his medications and denies any side effects. At this time patient denies any suicidal or homical ideations, intent or plan. Patient denies any auditory, visual hallucinations and denies any paranoia or delusions. Mental Status Exam: General Appearance: Patient appears to be older than stated age is alert and more directable today. Patient has fair eye contact poor hygiene Behavior: Patient is calmly seated without any agitated behavior. Speech: Patient's speech is fluent and nonpressured. Mood/Affect: Patient reports their mood is "the same", affect is congruent Suicidality/Homicidality: Patient denies having any suicidal or homicidal ideation intent or plan. Perceptions: Patient denies any auditory or visual hallucinations. Though content/process: There is no evidence of any delusional thought content and thought process is linear and goal-directed. Memory and concentration: AOX3, grossly intact for the purposes of this session. Judgment and insight: Poor/superficial, improving mildly. Assessment Bipolar disorder unspecified Cannabis use disorder Plan: -Patient continues to meet criteria for inpatient psychiatric admission for symptom stabilization and safety. Patient has signed adult voluntary form and medication consent and was placed in patient's chart. -Medications: Continue with Invega 3 mg nightly for mood stabilization/psychosis. Patient refused his Invega Sustenna 156 mg loading dose, therefore we'll continue to wait for court order for this medication. -Patient last received his Invega Sustenna 39 mg on 03/24/2019 -When necessary Geodon and Ativan for agitation/aggression. -NRT - nicotine patch -SW on board for discharge planning. Patient had court date initially on 05/06/2019, and patient had his independent psychiatric evaluation on 05/19/2019. Patient is due back in court on May 27 2019 and is agreeable to receive his long-acting injection prior to that and will anticipate discharge shortly thereafter.
[2019-05-21] MEDS: LORazepam 1 MG TAB PO PRN (17:57)
[2019-05-21] MEDS: PALIPERIDONE 3 MG TAB.ER.24 PO SCH (20:38)
[2019-05-22] MEDS: NICOTINE 21MG/24HR PATCH TRANSDERM SCH (08:28)
[2019-05-22] MEDS: CYANOCOBALAMIN 500 MCG TAB PO SCH (08:28)
[2019-05-22] MEDS: ASCORBIC ACID 500 MG TAB PO SCH ×2 (08:28→20:37)
[2019-05-22] MEDS: PANTOPRAZOLE 40 MG TABLET PO SCH (08:28)
[2019-05-22] MEDS: LORazepam 1 MG TAB PO PRN ×2 (08:30→20:36)
[2019-05-22] MEDS: IBUPROFEN 600 MG TAB PO PRN ×2 (08:30→20:36)
[2019-05-22] MEDS: BENZOCAINE/MENTHOL LOZENG 1 EACH LOZENGE MUCOUS MEM PRN ×2 (08:30→20:38)
[2019-05-22] MEDS: guaiFENesin SYRUP 100MG/5ML 200 MG/10 ML CUP PO PRN ×2 (09:03→20:38)
--- NOTE | 2019-05-22 12:37 | P.PN ---
Progress Note - Text Progress Note Date: 05/22/19 Interval History: Patient was seen today in his room and was agreeable to speak to the ad copy writer in his room. Patient offered no overnight complaints and states that "everything is the same". He states that he will continue to look forward to the court date on May 27 and claims to be frustrated and upset with his master control operator as "she's not returning my calls". Patient also states that he did not feel the mood to go to groups and would prefer to hang out in his room until the afternoon where he comes out of his room and will walk the hallways. Patient was less irritable today and claims that his mood is "fine". He denies any depressive symptoms at this time. He claims that he slept through the night and reports no issues overnight. Patient admits to taking his medications and denies any side effects. At this time patient denies any suicidal or homical ideations, intent or plan. Patient denies any auditory, visual hallucinations and denies any paranoia or delusions. Mental Status Exam: General Appearance: Patient appears to be older than stated age is alert and more directable today. Patient has fair eye contact poor hygiene Behavior: Patient is calmly seated without any agitated behavior. Speech: Patient's speech is fluent and nonpressured. Mood/Affect: Patient reports their mood is "fine", affect is congruent Suicidality/Homicidality: Patient denies having any suicidal or homicidal ideation intent or plan. Perceptions: Patient denies any auditory or visual hallucinations. Though content/process: There is no evidence of any delusional thought content and thought process is linear and goal-directed. Memory and concentration: AOX3, grossly intact for the purposes of this session. Judgment and insight: Poor/superficial, improving mildly. Assessment Bipolar disorder unspecified Cannabis use disorder Plan: -Patient continues to meet criteria for inpatient psychiatric admission for symptom stabilization and safety. Patient has signed adult voluntary form and medication consent and was placed in patient's chart. -Medications: Continue with Invega 3 mg nightly for mood stabilization/psychosis. Patient refused his Invega Sustenna 156 mg loading dose, therefore we'll continue to wait for court order for this medication. -Patient last received his Invega Sustenna 39 mg on 03/24/2019 -When necessary Geodon and Ativan for agitation/aggression. -NRT - nicotine patch -SW on board for discharge planning. Patient had court date initially on 05/06/2019, and patient had his independent psychiatric evaluation on 05/19/2019. Patient is due back in court on May 27 2019 and is agreeable to receive his long-acting injection prior to that and will anticipate discharge shortly thereafter.
[2019-05-22] MEDS: ACETAMINOPHEN TAB 325 MG TAB PO PRN (20:37)
[2019-05-22] MEDS: PALIPERIDONE 3 MG TAB.ER.24 PO SCH (20:39)
[2019-05-23] MEDS: NICOTINE 21MG/24HR PATCH TRANSDERM SCH (08:43)
[2019-05-23] MEDS: CYANOCOBALAMIN 500 MCG TAB PO SCH (08:43)
[2019-05-23] MEDS: PANTOPRAZOLE 40 MG TABLET PO SCH (08:44)
[2019-05-23] MEDS: ASCORBIC ACID 500 MG TAB PO SCH ×2 (08:44→20:20)
[2019-05-23] MEDS: BENZOCAINE/MENTHOL LOZENG 1 EACH LOZENGE MUCOUS MEM PRN ×2 (08:46→20:20)
[2019-05-23] MEDS: ACETAMINOPHEN TAB 325 MG TAB PO PRN ×2 (08:46→20:21)
[2019-05-23] MEDS: IBUPROFEN 600 MG TAB PO PRN ×2 (08:46→20:21)
[2019-05-23] MEDS: guaiFENesin SYRUP 100MG/5ML 200 MG/10 ML CUP PO PRN ×2 (09:00→20:20)
[2019-05-23] MEDS: LORazepam 1 MG TAB PO PRN (16:38)
--- NOTE | 2019-05-23 19:38 | P.PN ---
Progress Note - Text Progress Note Date: 05/23/19 IDENTIFICATION DATA: 39-year-old male admitted to [facility] with medication non compliance and unpredictable behavior INTERVAL HISTORY: Patient was seen today. Is happy about his dad visiting him today. He states his dad visits once a week and is planning to live with him following his discharge. Reports being compliant with his medications. No side effects reported. Reports good sleep and appetite. MENTAL STATUS EXAMINATION: 39-year old male appears stated age in fair grooming and hygine. Is alert and oriented 4. Mood is reported as good and affect is appropriate. Speech and thought processes are linear and goal directed. thought content is negative for suicidal or homicidal ideation. Denies auditory and visual hallucinations. Denies paranoid ideations. insight and judgment are improving Assessment Bipolar disorder unspecified Cannabis use disorder Plan Invega 3 mg nightly for mood stabilization/psychosis.
[2019-05-23] MEDS: PALIPERIDONE 3 MG TAB.ER.24 PO SCH (20:20)
[2019-05-24] MEDS: BENZOCAINE/MENTHOL LOZENG 1 EACH LOZENGE MUCOUS MEM PRN ×2 (08:11→20:34)
[2019-05-24] MEDS: NICOTINE 21MG/24HR PATCH TRANSDERM SCH (08:11)
[2019-05-24] MEDS: ASCORBIC ACID 500 MG TAB PO SCH ×2 (08:12→20:34)
[2019-05-24] MEDS: IBUPROFEN 600 MG TAB PO PRN ×2 (08:12→20:46)
[2019-05-24] MEDS: PANTOPRAZOLE 40 MG TABLET PO SCH (08:12)
[2019-05-24] MEDS: CYANOCOBALAMIN 500 MCG TAB PO SCH (08:12)
[2019-05-24] MEDS: ACETAMINOPHEN TAB 325 MG TAB PO PRN ×2 (08:13→20:35)
--- NOTE | 2019-05-24 18:16 | P.PN ---
Progress Note - Text Progress Note Date: 05/24/19 Identifying information 39-year-old male admitted to [facility] with medication non compliance and unpredictable behavior Interval history Patient was seen today. He reports spending most of the time inside his room as he does not like being in crowds and avoids going to his PSR groups. He staets he prefers to stay isolated. He states his medications help him to some extent that he doesnt feel paranoid and is able to think and plan well. He stated he will be getting his booster dose of invega sustenna prior to his discharge. He reports good sleep and appetite. He denies current symptoms of depression. Mental status exam 39 year old male. Appears his stated age in fair grooming and hygiene. No abnormal movements noted. His speech and thought process are goal directed. His mood is reported as good and affect constricted. He denies current auditory or visual hallucinations. He denies current paranoid ideations. He is alert and oriented x 4. He denies current suicidal or homicidal ideations. His insight and judgement are improving. Assessment Bipolar disorder unspecified Cannabis use disorder Plan: Patient continues to meet criteria for inpatient psychiatric admission for symptom stabilization and safety. Continue with Invega 3 mg nightly for mood stabilization/psychosis. Patient is currently agreable to take his Invega Sustenna 156 mg prior to his discharge on Saturday following his court hearing. Patient last received his Invega Sustenna 39 mg on 03/24/2019
[2019-05-24] MEDS: LORazepam 1 MG TAB PO PRN (18:36)
[2019-05-24] MEDS: PALIPERIDONE 3 MG TAB.ER.24 PO SCH (20:34)
[2019-05-24] MEDS: guaiFENesin SYRUP 100MG/5ML 200 MG/10 ML CUP PO PRN (20:34)
[2019-05-25] MEDS: PANTOPRAZOLE 40 MG TABLET PO SCH (08:50)
[2019-05-25] MEDS: ASCORBIC ACID 500 MG TAB PO SCH ×2 (08:50→20:21)
[2019-05-25] MEDS: CYANOCOBALAMIN 500 MCG TAB PO SCH (08:50)
[2019-05-25] MEDS: NICOTINE 21MG/24HR PATCH TRANSDERM SCH (08:50)
[2019-05-25] MEDS: BENZOCAINE/MENTHOL LOZENG 1 EACH LOZENGE MUCOUS MEM PRN ×2 (08:50→20:18)
[2019-05-25] MEDS: ACETAMINOPHEN TAB 325 MG TAB PO PRN ×2 (08:51→20:17)
[2019-05-25] MEDS: IBUPROFEN 600 MG TAB PO PRN ×2 (08:52→20:19)
--- NOTE | 2019-05-25 11:33 | P.PN ---
Progress Note - Text Progress Note Date: 05/25/19 Interval History: Patient was seen today wandering the hallways and was agreeable to speak to the video games storywriter in his room. Patient appeared to be somewhat irritable this morning and claims that he still has not heard from his mill recorder. He stated that he has called her multiple times to find out what the next step is however has not found out. He states that "everything is the same" when asked about his mood and claims that he is trying to be optimistic. He continues to perseverate about his rights being violated. Patient also states that he has been attempting to come out of his room and go to more groups and try to participate. He denies any depressive symptoms at this time. He claims that he slept through the night and reports no issues overnight. Patient admits to taking his medications and denies any side effects. At this time patient denies any suicidal or homical ideations, intent or plan. Patient denies any auditory, visual hallucinations and denies any paranoia or delusions. Mental Status Exam: General Appearance: Patient appears to be older than stated age is alert and m ore directable today. Patient has fair eye contact poor hygiene Behavior: Patient is calmly seated without any agitated behavior. Somewhat irritable today. Speech: Patient's speech is fluent and nonpressured. Mood/Affect: Patient reports their mood is "the same", affect is congruent Suicidality/Homicidality: Patient denies having any suicidal or homicidal ideation intent or plan. Perceptions: Patient denies any auditory or visual hallucinations. Though content/process: There is no evidence of any delusional thought content and thought process is linear and goal-directed. Memory and concentration: AOX3, grossly intact for the purposes of this session. Judgment and insight: Poor/superficial, improving mildly. Assessment Bipolar disorder unspecified Cannabis use disorder Plan: -Patient continues to meet criteria for inpatient psychiatric admission for symptom stabilization and safety. Patient has signed adult voluntary form and medication consent and was placed in patient's chart. -Medications: Continue with Invega 3 mg nightly for mood stabilization/psychosis. Patient refused his Invega Sustenna 156 mg loading dose, therefore we'll continue to wait for court order for this medication. -Patient last received his Invega Sustenna 39 mg on 03/24/2019 -When necessary Geodon and Ativan for agitation/aggression. -NRT - nicotine patch -SW on board for discharge planning. Patient had court date initially on 05/06/2019, and patient had his independent psychiatric evaluation on 05/19/2019. Patient is due back in court on May 27 2019 and is agreeable to receive his long-acting injection tomorrow. Ordered Invega Sustenna 117mg for tomorrow night.
[2019-05-25] MEDS: LORazepam 1 MG TAB PO PRN (16:30)
[2019-05-25] MEDS: PALIPERIDONE 3 MG TAB.ER.24 PO SCH (20:19)
[2019-05-25] MEDS: guaiFENesin SYRUP 100MG/5ML 200 MG/10 ML CUP PO PRN (20:20)
[2019-05-26] MEDS: CYANOCOBALAMIN 500 MCG TAB PO SCH (09:27)
[2019-05-26] MEDS: ASCORBIC ACID 500 MG TAB PO SCH ×2 (09:27→21:01)
[2019-05-26] MEDS: PANTOPRAZOLE 40 MG TABLET PO SCH (09:27)
[2019-05-26] MEDS: NICOTINE 21MG/24HR PATCH TRANSDERM SCH (09:27)
[2019-05-26] MEDS: guaiFENesin SYRUP 100MG/5ML 200 MG/10 ML CUP PO PRN ×2 (09:29→20:59)
[2019-05-26] MEDS: IBUPROFEN 600 MG TAB PO PRN ×2 (09:29→21:00)
[2019-05-26] MEDS: BENZOCAINE/MENTHOL LOZENG 1 EACH LOZENGE MUCOUS MEM PRN ×2 (09:30→21:00)
--- NOTE | 2019-05-26 09:46 | P.PN ---
Progress Note - Text Progress Note Date: 05/26/19 Interval History: Patient was seen today wandering the hallways and was agreeable to speak to the marketing writer in his room. Patient appeared to be less irritable this morning as he spoke about his court case. He states that he has been continuing to try and contact his government guard however has not heard back from her. Patient claims that he wants to be discharged as soon as he can and wants to continue fighting his court order. He states that "nothing is changed" and appears to be frustrated when asked about his mood. He states that he is not depressed and does not feel any anxiety. He continues to perseverate about his rights being violated and was preoccupied about his medication doses. Patient did state that he has been going to groups and finding them helpful. He claims that he slept through the night and reports no issues overnight. Patient admits to taking his medications and denies any side effects. At this time patient denies any suicidal or homical ideations, intent or plan. Patient denies any auditory, visual hallucinations and denies any paranoia or delusions. Mental Status Exam: General Appearance: Patient appears to be older than stated age is alert and more directable today. Patient has fair eye contact improving hygiene Behavior: Patient is calmly seated without any agitated behavior. Somewhat irritable today. Speech: Patient's speech is fluent and nonpressured. Mood/Affect: Patient reports their mood is "same", affect is congruent Suicidality/Homicidality: Patient denies having any suicidal or homicidal ideation intent or plan. Perceptions: Patient denies any auditory or visual hallucinations. Though content/process: There is no evidence of any delusional thought content and thought process is linear and goal-directed. Memory and concentration: AOX3, grossly intact for the purposes of this session. Judgment and insight: superficial, improving mildly. Assessment Bipolar disorder unspecified Cannabis use disorder Plan: -Patient continues to meet criteria for inpatient psychiatric admission for symptom stabilization and safety. Patient has signed adult voluntary form and medication consent and was placed in patient's chart. -Medications: Continue with Invega 3 mg nightly for mood stabilization/psychosis. Patient refused his Invega Sustenna 156 mg loading dose, therefore we'll continue to wait for court order for this medication. -Patient last received his Invega Sustenna 39 mg on 03/24/2019 -When necessary Geodon and Atjimmie for agitation/aggression. -NRT - nicotine patch - on board for discharge planning. Patient had court date initially on 05/06/2019, and patient had his independent psychiatric evaluation on 05/19/2019. Patient is due back in court on May 27 2019 and is agreeable to receive his long-acting injection tonight prior to court. Ordered Invega Sustenna 117mg for tonight.
[2019-05-26] MEDS ORDERED: PALIPERIDONE IM 156 MG/ML SYG IM ONE ×2 (12:00→20:00)
[2019-05-26] MEDS ORDERED: PALIPERIDONE IM 234 MG/1.5 ML SYG IM ONE (21:00)
[2019-05-26] MEDS: PALIPERIDONE 3 MG TAB.ER.24 PO SCH (21:00)
[2019-05-26] MEDS: LORazepam 1 MG TAB PO PRN (22:35)
[2019-05-27 07:01] VITALS: BP 140/78; PULSE 71; RESP 16; TEMP 97.7
[2019-05-27] MEDS: ASCORBIC ACID 500 MG TAB PO SCH (09:12)
[2019-05-27] MEDS: CYANOCOBALAMIN 500 MCG TAB PO SCH (09:12)
[2019-05-27] MEDS: NICOTINE 21MG/24HR PATCH TRANSDERM SCH (09:12)
[2019-05-27] MEDS: guaiFENesin SYRUP 100MG/5ML 200 MG/10 ML CUP PO PRN (09:13)
[2019-05-27] MEDS: PANTOPRAZOLE 40 MG TABLET PO SCH (09:13)
--- NOTE | 2019-05-27 11:42 | P.DS ---
Providers Date of admission: 04/21/19 20:57 Expected date of discharge: 05/27/19 Attending physician: Pelon Mcleod MD Consults: 04/21/19 22:48 Consult Physician Routine Consulting Provider: Adeel Arias Consult Reason/Comments: H&P and medical Do you want consulting provider notified?: Yes Primary care physician: Tammy Ortiz - Discharge Diagnosis(es) (1) Bipolar disorder, mixed Current Visit: Yes Status: Acute Priority: High (2) Cannabis use disorder, mild, abuse Current Visit: Yes Status: Acute Priority: Medium (3) Nicotine dependence Current Visit: Yes Status: Acute Priority: Low Hospital Course: Admission HPI: Patient is a 39-year-old male who currently lives with his father in a house is and has no kids and currently collects SSI. Patient presented to the hospital on an order by the weaver apprentice for a psychiatric evaluation. As per ER note, patient was upset because he wanted his Invega Sustenna 38 mg dosed every 4 weeks and not every 3 weeks and was noted to be noncompliant with the Seroquel at night. As per petition patient was unpredictable argumentative at home. Patient was agreeable to be seen today by play writer was directable however appeared to be somewhat frustrated with his medications. Patient stated that he does not understand why he is in the hospital and is upset with [facility] and the ACT team. He states that he was seen by Dr. Jacob yesterday at his home and claims that he believes one of the ACT team members was guiding Dr. Jacob decision to have him brought to the hospital. He states that he does not get along with this staff member. Patient states that he wants to take his medications as own way. He states that "finally I have been feeling right and stable and now they want to change my medications and put me in the hospital". Patient states that he is socially awkward and does not get along with most people and may come off intrusive however he states that he just wants to be alone sometimes and spoke about having several people around the [place] that he writes to talk about different problems. He denies any problems at home or any arguments with his father. When patient was asked about his medication dosages he states that he understands that he needs them however wants to remain on the 38 mg dose and is refusing to be increased as he states that "if you give me that dose all do is lay on the couch for a month". He denies any depressive symptoms at this time and denies any anxiety. Patient was directable during the interview and did get upset however when discussing medications. He currently denies any manic symptoms including flight of ideas racing thoughts and increasing goal-directed behaviors. He states that his sleep is well approximately 6-8 hours a night. Patient denies any suicidal or homicidal ideations intent or plan. At this time patient denies any auditory or visual hallucinations. Patient admits to using occasional marijuana. He denies any other substance use at this time. Hospital course: Upon admission to the unit patient was initially irritable, labile and aggressive. Patient was voluntary however patient claimed that she did not want to be put on a long-acting injection tablet was recommended by [facility] and the ACT team. Patient declined his 156mg Invega Sustenna dose upon admission and claimed that she wanted to go to court to fight for his rights to not be on long-acting injection any longer and not be treated by [facility]. Patient was agreeable however to be put on intake paliperidone by mouth 3 mg daily at bedtime for mood stabilization/psychosis. Patient had his initial court date on 05/06/2019 and patient requested to have an independent psychiatric evaluation which was performed on 05/19/2019. Patient was due back in court on 05/27/2019 however independent rip sawyer was not able to provide the report and the court date was adjourned. Patient signed deferment to treatment order on 05/26/2019 and received his Invega Sustenna 156 mg injection dose and tolerated it well. Patient got along well with other patients on the unit and followed unit protocol. Patient denied any side effects throughout hospital course. Patient spoke of his stressors and engaged in therapy both group and individual. Patient was also seen by medical team for history and physical exam. Patient was noticed to be coughing and having shortness of breath and was evaluated by medicine and had a chest x-ray done on 05/02/2019 which showed bibasilar infiltrates thought to be pneumonia. Patient was treated on antibiotic on the unit and improved gradually. Throughout the course of the hospitalization patient gradually improved with regards to mood, agitation/irritability, sleep and became future oriented with improved insight and judgment. On the day of discharge patient denied any suicidal or homicidal ideations intent or plan denied any auditory or visual hallucinations. Patient endorsed wanting to live for his health and family. The patient denied any access to guns or weapons. Patient denied any paranoia and did not endorse any delusions. Patient does have a significant history of substance abuse and was counseled on abstaining from all substances including alcohol and marijuana. Patient was also counseled on the medications and need for regular compliance and was encouraged to follow- up with their outpatient appointment for mental health and also for primary care. Prior to discharge a family meeting will be arranged by bilingual social worker to answer any questions and ensure safety upon discharge. Mental status exam: General Appearance: Patient appears to be older than stated age is alert, directable and cooperative. Patient is in no acute distress and has fair hygiene and grooming Behavior: Patient is calmly seated without any agitated behavior. Speech: Patient's speech is fluent and nonpressured. Mood/Affect: Patient reports their mood is "better", affect is congruent and euthymic. Suicidality/Homicidality: Patient denies having any suicidal or homicidal ideation intent or plan. Perceptions: Patient denies any auditory or visual hallucinations. Though content/process: There is no evidence of any delusional thought content and thought process is linear and goal-directed. Memory and concentration: AOX3, grossly intact for the purposes of this session. Can spell "WORLD" backwards correctly. Judgment and insight: fair, improved Impression: Bipolar disorder, mixed Cannabis use disorder, mild Nicotine dependence Plan: -Continue with discharge today as patient has improved and stabilized psychiatrically and is not currently an imminent threat to himself and/or others. -Continue medications: Patient to continue on by mouth paliperidone 3 mg nightly for 3 days then discontinue. Patient received his Invega Sustenna 156 mg IM injection on 05/26/2019 and tolerated it well and will be due for his next Invega Sustenna IM injection 117mg on 06/02/2019. -Patient signed court deferment for treatment on 05/26/2019. -Patient was counseled on the need for medication compliance and appropriate fol low-up at mental health and also primary care for medical issues. Patient verbalized understanding and agreed. -Social work to arrange for and conduct family meeting to ensure safety upon discharge and answer any questions/concerns. Social work also to arrange for patients follow up appointments with [facility] for psychiatric care along with follow up with primary care provider. -Patient counseled on abstaining from recreational drugs and marijuana and alcohol. Was informed/educated on the adverse effects on their physical and mental health. Patient verbally agreed and understood -Patient was instructed to return to the hospital or seek immediate medical care if their psychiatric or medical systems do worsen or reoccur. Allergies Allergy/AdvReac Type Severity Reaction Status Date / Time No Known Allergies Allergy Verified 04/21/19 17:47 Laboratory Results WBC 10.0 k/uL (3.8-10.6) 04/22/19 07:41 RBC 5.28 m/uL (4.30-5.90) 04/22/19 07:41 Hgb 15.7 gm/dL (13.0-17.5) 04/22/19 07:41 Hct 47.0 % (39.0-53.0) 04/22/19 07:41 MCV 89.0 fL (80.0-100.0) 04/22/19 07:41 MCH 29.8 pg (25.0-35.0) 04/22/19 07:41 MCHC 33.4 g/dL (31.0-37.0) 04/22/19 07:41 RDW 13.3 % (11.5-15.5) 04/22/19 07:41 Plt Count 300 k/uL (150-450) 04/22/19 07:41 Neutrophils % 65 % 04/22/19 07:41 Lymphocytes % 25 % 04/22/19 07:41 Monocytes % 5 % 04/22/19 07:41 Eosinophils % 2 % 04/22/19 07:41 Basophils % 1 % 04/22/19 07:41 Neutrophils # 6.5 k/uL (1.3-7.7) 04/22/19 07:41 Lymphocytes # 2.5 k/uL (1.0-4.8) 04/22/19 07:41 Monocytes # 0.5 k/uL (0-1.0) 04/22/19 07:41 Eosinophils # 0.2 k/uL (0-0.7) 04/22/19 07:41 Basophils # 0.1 k/uL (0-0.2) 04/22/19 07:41 Sodium 137 mmol/L (137-145) 04/22/19 07:41 Potassium 4.5 mmol/L (3.5-5.1) 04/22/19 07:41 Chloride 106 mmol/L (98-107) 04/22/19 07:41 Carbon Dioxide 22 mmol/L (22-30) 04/22/19 07:41 Anion Gap 9 mmol/L 04/22/19 07:41 BUN 18 mg/dL (9-20) 04/22/19 07:41 Creatinine 0.85 mg/dL (0.66-1.25) 04/22/19 07:41 Est GFR (CKD-EPI)AfAm >90 (>60 ml/min/1.73 sqM) 04/22/19 07:41 Est GFR (CKD-EPI)NonAf >90 (>60 ml/min/1.73 sqM) 04/22/19 07:41 Glucose 97 mg/dL (74-99) 04/22/19 07:[address] Glu mg/dL 120 04/22/19 07:41 Hemoglobin A1c 5.8 % (4.0-6.0) 04/22/19 07:41 Calcium 9.4 mg/dL (8.4-10.2) 04/22/19 07:41 Total Bilirubin 0.5 mg/dL (0.2-1.3) 04/22/19 07:41 AST 50 U/L (17-59) 04/22/19 07:41 ALT 109 U/L (21-72) H 04/22/19 07:41 Alkaline Phosphatase 72 U/L (38-126) 04/22/19 07:41 Total Protein 6.8 g/dL (6.3-8.2) 04/22/19 07:41 Albumin 4.0 g/dL (3.5-5.0) 04/22/19 07:41 Triglycerides 223 mg/dL (<150) H 04/22/19 07:41 Cholesterol 173 mg/dL (<200) 04/22/19 07:41 LDL Cholesterol, Calc 91 mg/dL (0-99) 04/22/19 07:41 HDL Cholesterol 37 mg/dL (40-60) L 04/22/19 07:41 TSH 1.820 mIU/L (0.465-4.680) 04/22/19 07:41 Urine Color Yellow 05/08/19 13:30 Urine Appearance Clear (Clear) 05/08/19 13:30 Urine pH 7.0 (5.0-8.0) 05/08/19 13:30 Ur Specific [place] 1.013 (1.001-1.035) 05/08/19 13:30 Urine Protein Negative (Negative) 05/08/19 13:30 Urine Glucose (UA) Negative (Negative) 05/08/19 13:30 Urine Ketones Negative (Negative) 05/08/19 13:30 Urine Blood Negative (Negative) 05/08/19 13:30 Urine Nitrite Negative (Negative) 05/08/19 13:30 Urine Bilirubin Negative (Negative) 05/08/19 13:30 Urine Urobilinogen <2.0 mg/dL (<2.0) 05/08/19 13:30 Ur Leukocyte Esterase Negative (Negative) 05/08/19 13:30 Urine Opiates Screen Not Detected (NotDetected) 04/21/19 18:06 Ur Oxycodone Screen Not Detected (NotDetected) 04/21/19 18:06 Urine Methadone Screen Not Detected (NotDetected) 04/21/19 18:06 Ur Propoxyphene Screen Not Detected (NotDetected) 04/21/19 18:06 Ur Barbiturates Screen Not Detected (NotDetected) 04/21/19 18:06 U Tricyclic Antidepress Not Detected (NotDetected) 04/21/19 18:06 Ur Phencyclidine Scrn Not Detected (NotDetected) 04/21/19 18:06 Ur Amphetamines Screen Not Detected (NotDetected) 04/21/19 18:06 U Methamphetamines Scrn Not Detected (NotDetected) 04/21/19 18:06 U Benzodiazepines Scrn Not Detected (NotDetected) 04/21/19 18:06 Urine Cocaine Screen Not Detected (NotDetected) 04/21/19 18:06 U Marijuana (THC) Screen Detected (NotDetected) H 04/21/19 18:06 Influenza Type A RNA Not Detected (Not Detectd) 05/01/19 12:00 Influenza Type B (PCR) Not Detected (Not Detectd) 05/01/19 12:00 Vital Signs Temp 97.7 F 05/27/19 06:11 Pulse 71 05/27/19 06:11 Resp 16 05/27/19 06:11 BP 140/78 05/27/19 06:11 Pulse Ox 97 05/09/19 09:40 Patient Condition at Discharge: Stable Plan - Discharge Summary Discharge Rx Participant: No New Discharge Prescriptions: New Benzocaine/Menthol Lozeng [Cepacol lozenge] 1 each MUCOUS MEM Q4HR PRN lozenge PRN Reason: Sore Throat Nicotine 21Mg/24Hr Patch [Habitrol] 1 patch TRANSDERM DAILY 14 Days patch Paliperidone [Invega] 3 mg PO HS #3 tab.er.24 Ibuprofen [Motrin] 600 mg PO TID PRN tab PRN Reason: Moderate Pain guaiFENesin SYRUP 100MG/5ML [Robitussin] 200 mg PO TID PRN cup PRN Reason: Cough Ascorbic Acid [Vitamin C] 250 mg PO BID tab Continue Cyanocobalamin [Vitamin B-12] 1,000 mcg PO DAILY Omeprazole [PriLOSEC] 20 mg PO DAILY Discontinued Ginkgo Biloba 500 mg PO DAILY QUEtiapine [SEROquel] 100 - 200 mg PO HS PRN PRN Reason: Insomnia Paliperidone Palmitate [Invega Sustenna] 39 mg IM Q28D LORazepam [Ativan] 1 mg PO BID PRN PRN Reason: Anxiety Discharge Medication List Cyanocobalamin [Vitamin B-12] 1,000 mcg PO DAILY 12/07/16 [History] Omeprazole [PriLOSEC] 20 mg PO DAILY 04/21/19 [History] Ascorbic Acid [Vitamin C] 250 mg PO BID tab 05/27/19 [Rx] Benzocaine/Menthol Lozeng [Cepacol lozenge] 1 each MUCOUS MEM Q4HR PRN lozenge 05/27/19 [Rx] Ibuprofen [Motrin] 600 mg PO TID PRN tab 05/27/19 [Rx] Nicotine 21Mg/24Hr Patch [Habitrol] 1 patch TRANSDERM DAILY 14 Days patch 05/27/19 [Rx] Paliperidone [Invega] 3 mg PO HS #3 tab.er.24 05/27/19 [Rx] guaiFENesin SYRUP 100MG/5ML [Robitussin] 200 mg PO TID PRN cup 05/27/19 [Rx] Follow up Appointment(s)/Referral(s): [facility] [Outside] - 05/29/19 9:00 am (ACT Team at home on 05/29 Dr Jacob 06/02 @ 09:30) None,Stated [REFERRING] - 1-2 days Patient Instructions/Handouts: Bipolar Disorder (DC), Psychotic Disorder (DC), Suicide Prevention (DC) Activity/Diet/Wound Care/Special Instructions: Activity and diet as tolerated. No guns or weapons in the home. Refrain from Alcohol and street drugs not prescribed by your physician/s. Take all medications as prescribed, and attend your scheduled follow up appointments for psychiatric after care. If in need of medication refills, please to your primary care physician, or your out patient psychiatric provider. If in crisis please call , or go the nearest ER for an evaluation. Discharge Disposition: HOME SELF-CARE
== END 2019-05-27 13:58 | disposition home or self-care (01) | DRG 885 ==
LOC: EC 16:45 → 3MHU 20:57
PROVIDERS: ADMIT Psychiatry & Neurology Psychiatry; ATTEND Psychiatry & Neurology Psychiatry
DX: F31.60 Bipolar disorder, current episode mixed, unspecified (principal); F12.10 Cannabis abuse, uncomplicated; Z71.6 Tobacco abuse counseling; F41.9 Anxiety disorder, unspecified; F17.210 Nicotine dependence, cigarettes, uncomplicated; Z81.8 Family history of other mental and behavioral disorders; Z91.83 Wandering in diseases classified elsewhere; T43.596A Underdosing of other antipsychotics and neuroleptics, initial encounter; Z91.128 Patient's intentional underdosing of medication regimen for other reason; K21.9 Gastro-esophageal reflux disease without esophagitis; Z79.899 Other long term (current) drug therapy
CPT/HCPCS: 71046; 80053; 80061; 80306; 81003; 82075; 83036; 84443; 85025; 87502; 99285

== ENCOUNTER 2024-09-29 15:08 | Inpatient (IN) | payer MEDICAID, OTHER ==
[2024-09-29] MEDS ORDERED: MAGNESIUM HYDROXIDE 2,400 MG/30 ML CUP PO PRN (15:54)
[2024-09-29] MEDS ORDERED: LORazepam 2 MG/ML INJ IM PRN (15:54)
[2024-09-29] MEDS ORDERED: haloperidoL 5 MG TAB PO PRN (15:54)
[2024-09-29] MEDS ORDERED: MAG HYDROX/AL HYDROX/SIMETH 355 ML BOTTLE PO PRN (15:54)
[2024-09-29] MEDS ORDERED: HALOPERIDOL LACTATE 5 MG/ML 1 ML VIAL IM PRN (15:54)
[2024-09-29 17:49] VITALS: RESP 16
[2024-09-29] MEDS: traZODone HCL 50 MG TAB PO PRN (22:21)
[2024-09-29] MEDS: LORazepam 1 MG TAB PO PRN (22:21)
[2024-09-29] MEDS: NICOTINE GUM (POLACRILEX) 2 MG GUM BUCCAL PRN (22:47)
[2024-09-30] MEDS: IBUPROFEN 600 MG TAB PO PRN (05:31)
[2024-09-30] MEDS: NICOTINE 14MG/24HR PATCH TRANSDERM SCH (07:12)
[2024-09-30 10:41] LABS: Basophils % (A) 0 %; Eosinophils # (A) 0.1 k/uL (0-0.7); Eosinophils % (A) 1 %; HCT 47.4 % (39.0-53.0); HGB 14.5 gm/dL (13.0-17.5); Lymphocytes # (A) 1.4 k/uL (1.0-4.8); Lymphocytes % (A) 14 %; MCHC 30.6 g/dL (31.0-37.0); MCV 88.1 fL (80.0-100.0); Mean Platelet Volume 6.7; Monocytes # (A) 0.5 k/uL (0-1.0); Monocytes % (A) 5 %; Neutrophils # (A) 8.3 k/uL (1.3-7.7); Neutrophils % (A) 80 %; Platelet Count 365 k/uL (150-450); RBC 5.38 m/uL (4.30-5.90); RDW 13.9 % (11.5-15.5); WBC 10.5 k/uL (3.8-10.6)
[2024-09-30 10:53] LABS: ALT 39 U/L (4-49); AST 31 U/L (17-59); African American GFR (CKD) >90 (>60 ml/min/1.73 sqM); Albumin 4.5 g/dL (3.5-5.0); Alkaline Phosphatase 94 U/L (38-126); Anion Gap 12 mmol/L; Blood Urea Nitrogen 17 mg/dL (9-20); Calcium 9.8 mg/dL (8.4-10.2); Carbon Dioxide 22 mmol/L (22-30); Chloride 106 mmol/L (98-107); Glucose 105 mg/dL (74-99); Magnesium 2.2 mg/dL (1.6-2.3); Non-African American GFR(CKD) >90 (>60 ml/min/1.73 sqM); Potassium 4.6 mmol/L (3.5-5.1); Sodium 140 mmol/L (137-145); Total Bilirubin 0.5 mg/dL (0.2-1.3); Total Protein 7.3 g/dL (6.3-8.2)
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
[2024-09-30] MEDS: OLANZapine 10 MG TAB PO SCH (20:25)
[2024-10-01] MEDS: ACETAMINOPHEN TAB 325 MG TAB PO PRN (05:40)
--- NOTE | 2024-10-01 09:32 | P.MDCNMH ---
History of Present Illness H&P Date: 09/30/24 This is a 44-year-old male who presented to the emergency department from [place] and sent here for psychiatric evaluation for manic episodes and reporting being delusional and hallucinating. Patient reports he has a significant past medical history of mental health disorder including bipolar, A DD/ADHD and anxiety along with previous history of substance abuse. Patient reports he sees Dr. Ortiz in the outpatient setting with past medical history of anxiety and depression, continued ongoing nicotine dependence, denies alcohol although was a past EtOH abuse and no further illicit drugs although did have polysubstance abuse previously. On exam patient is alert and oriented x 3, pleasant, cooperative, and reports was voluntarily admitted here on 3 W. for further psychiatric evaluation. Patient denies any chest pain, shortness of breath, reports to eating with no nausea or vomiting although not much of an appetite. REVIEW OF SYSTEMS: CONSTITUTIONAL: No fever, no malaise, no fatigue. HEENT: No recent visual problems or hearing problems. Denied any sore throat. CARDIOVASCULAR: No chest pain, orthopnea, PND, no palpitations, no syncope. PULMONARY: No shortness of breath, no cough, no hemoptysis. GASTROINTESTINAL: No diarrhea, no nausea, no vomiting, no abdominal pain. NEUROLOGICAL: No headaches, no weakness, no numbness. HEMATOLOGICAL: Denies any bleeding or petechiae. GENITOURINARY: Denies any burning micturition, frequency, or urgency. MUSCULOSKELETAL/RHEUMATOLOGICAL: Denies any joint pain, swelling, or any muscle pain. ENDOCRINE: Denies any polyuria or polydipsia. The rest of the 14-point review of systems is negative. PHYSICAL EXAMINATION: GENERAL: The patient is alert and oriented x3, not in any acute distress. Well developed, well nourished. HEENT: Pupils are round and equally reacting to light. EOMI. No scleral icterus. No conjunctival pallor. Normocephalic, atraumatic. No pharyngeal erythema. No thyromegaly. CARDIOVASCULAR: S1 and S2 present. No murmurs, rubs, or gallops. PULMONARY: Chest is clear to auscultation, no wheezing or crackles. ABDOMEN: Soft, nontender, nondistended, normoactive bowel sounds. No palpable organomegaly. MUSCULOSKELETAL: No joint swelling or deformity. EXTREMITIES: No cyanosis, clubbing, or pedal edema. NEUROLOGICAL: Gross neurological examination did not reveal any focal deficits. SKIN: No rashes. Assessment: Bipolar disorder with acute manic episodes and acute psychosis History of bipolar/anxiety/depression follows with [facility] in [facility] where he resides Continued ongoing nicotine abuse Previous history of polysubstance abuse including alcohol abuse Obesity with a BMI of 36.1 GI prophylaxis Full code Plan: Patient was voluntarily admitted to [facility] for further psychiatric evaluation Home medications reviewed and resumed as appropriate although does not take any chronic medications he reports Patient has nicotine patch and recommend to continue and may use gum as needed Encouraged group therapy sessions and compliance with medications and psychiatric evaluation Encouraged increase activity and avoid sleeping all day Thank you kindly for this consultation. Please do not hesitate to contact with questions or concerns The impression and plan of care has been dictated by Ruth Chong, Nurse Practitioner as directed. Dr. Sourav MD I have performed a history and examination and MDM of this patient, discussed the same with the dictator, and agree with the dictator's assessment and plan as written ,documented as a scribe. Based on total visit time, I have performed more than 50% of the visit. Past Medical History Past Medical History: No Reported History Additional Past Medical History / Comment(s): bipolar History of Any Multi-Drug Resistant Organisms: None Reported Past Surgical History: Hernia Repair Past Anesthesia/Blood Transfusion Reactions: No Reported Reaction Smoking Status: Current every day smoker Medications and Allergies Home Medications Medication Instructions Recorded Confirmed Type Cyanocobalamin [Vitamin B-12] 1,000 mcg PO DAILY 12/07/16 04/21/19 History Omeprazole [PriLOSEC] 20 mg PO DAILY 04/21/19 04/21/19 History Ascorbic Acid [Vitamin C] 250 mg PO BID tab 05/27/19 Rx Benzocaine/Menthol Lozeng [Cepacol 1 each MUCOUS MEM Q4HR PRN lozenge 05/27/19 Rx lozenge] Ibuprofen [Motrin] 600 mg PO TID PRN tab 05/27/19 Rx Nicotine 21Mg/24Hr Patch [Habitrol] 1 patch TRANSDERM DAILY 14 Days 05/27/19 Rx patch Paliperidone [Invega] 3 mg PO HS #3 tab.er.[id number] 05/27/19 Rx guaiFENesin SYRUP 100MG/5ML 200 mg PO TID PRN cup 05/27/19 Rx [Robitussin] Allergies Allergy/AdvReac Type Severity Reaction Status Date / Time No Known Allergies Allergy Verified 04/21/19 17:47 Physical Exam Vitals: Vital Signs Temp Pulse Pulse Resp BP BP Pulse Ox 09/29/24 21:00 98.0 F 79 16 164/95 99 09/29/24 17:30 97.6 F 83 16 170/80 98 Intake and Output 09/29/24 09/30/24 09/30/24 22:59 06:59 14:59 Other: Weight 120.797 kg Cranial Nerve Examination - Cranial Nerves Cranial Nerve I- Olfactory: Intact Cranial Nerve II- Optic: Intact Cranial Nerve III- Oculomotor: Intact Cranial Nerve IV- Trochlear: Intact Cranial Nerve V- Trigeminal: Intact Cranial Nerve - Abducens: Intact Cranial Nerve VII- Facial: Intact Cranial Nerve VIII- Auditory: Intact Cranial Nerve IX- Glossopharyngeal: Intact Cranial Nerve X- Vagus: Intact Cranial Nerve XI- Accessory: Intact Cranial Nerve XII- Hypoglossal: Intact Results CBC & Chem 7: 09/30/24 10:19 09/30/24 10:19
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
[2024-10-01] MEDS: OLANZapine 5 MG TAB PO SCH (20:58)
[2024-10-01] MEDS: traZODone HCL 50 MG TAB PO SCH (20:58)
--- NOTE | 2024-10-02 12:30 | P.PN ---
Progress Note - Text Progress Note Date: 10/02/24 Interval History: Patient was seen wandering the hallways and was directable and agreeable to sp tasha with comic writer in the office. He reports feeling somewhat drowsy this morning, which she attributes to both Zyprexa and trazodone. Patient has been active in groups, redirectable, adherent with his medications. He mentions living alone and will return home upon discharge. He mentions speaking to his aunt and that things are well between them. At this time patient denies any suicidal or homic idal ideations, intent or plan. Patient denies any auditory, visual hallucinations and denies any paranoia or delusions. Patient denies any side effects from the medications and has been compliant with meds. Mental Status Exam: General Appearance: Patient appears to be stated age is alert, directable, and cooperative. He wears glasses and has fair grooming Behavior: Patient is calmly seated without any agitated behavior. Speech: Patient's speech is fluent and nonpressured. Mood/Affect: Mood is improving mildly, affect is congruent and less expansive. Suicidality/Homicidality: Patient denies having any suicidal or homicidal ideation intent or plan. Perceptions: Patient denies any visual hallucinations and denies any auditory hallucinations Though content/process: There is no evidence of any delusional thought content and thought process is linear and goal-directed. Memory and concentration: AOX3, grossly intact for the purposes of this session Judgment and insight: Improving mildly Assessment Bipolar 1 disorder, current episode manic with psychotic features Nicotine dependence Rule out PTSD Plan: -Patient continues to meet criteria for inpatient psychiatric admission for s ymptom stabilization and safety. Patient has signed adult voluntary form and medication consent and was placed in patient's chart. -Medications: Continue Zyprexa 15 mg at bedtime for bipolar disorder/sleep, trazodone 50 mg at bedtime for insomnia -When necessary Ativan and Haldol for agitation/aggression. -Labs: Grossly WNL -NRT -nicotine patch -SW on board for discharge planning. Encouraged the patient to participate in milieu. Anticipate discharge back home on Saturday
--- NOTE | 2024-10-03 15:57 | P.PN ---
Progress Note - Text Interval history: Patient was seen walking the hallways and was directable and agreeable to speak with fiction writer. He described his mood as "well-adjusted" feels that he is "putting in time" here in the hospital. Noted that he does not feel he is under the control of others which he sees as positive though he then said "well, I am under others control just not those people". He went on to say that he is tolerating his medication without issue and feels that he is sleeping okay. He is hoping to discharge from the hospital sometime next week and would like to discuss this with the team on Saturday. At this time patient denies any suicidal or homicidal ideations intent or plan. Denies any auditory or visual hallucinations. Patient denies any side effects from the medications and has been compliant with meds. Mental status exam: General Appearance: Patient appears to be stated age is alert, directable, and cooperative. Behavior: No agitated behavior. Patient is calm and directable Speech: Patient's speech is fluent and nonpressured. Tone is expressive. Mood/Affect: Mood is "well-adjusted", affect is congruent and euthymic. Suicidality/Homicidality: Patient denies having any suicidal or homicidal ideation intent or plan. Perceptions: Patient denies any auditory or visual hallucinations. Though content/process: There is no evidence of any delusional thought content and thought process is linear and goal-directed. Memory and concentration: AOX3, grossly intact for the purposes of this session Judgment and insight: improving mildly Assessment/Plan: Continue with current diagnoses: Bipolar 1 disorder, current episode manic with psychotic features, Nicotine dependence, Rule out PTSD Patient continues to meet criteria for inpatient psychiatric admission for symptom stabilization and safety. Patient will be maintained on current psychotropic medication regimen. - Continue Olanzapine 15 mg at bedtime for bipolar disorder - Continue Trazodone 50 mg at bedtime as needed for sleep Monitor for medication compliance and for any psychotropic medication side effects. Will continue to monitor ongoing response to treatment. Encouraged participation in milieu.
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
--- NOTE | 2024-10-05 17:37 | P.PN ---
Progress Note - Text Progress Note Date: 10/05/24 Progress Note - Text Subjective: The patient noted feeling fine. He denied any symptoms on leading questions. He did note that he has been diagnosed with decompressed psychosis. He was to know the meaning of this diagnosis. The patient noted that he is manic depressive and currently hypomanic. The patient was preoccupied with being discharge. He was talking fast and could not focus on any topic. He appeared driven. He exhibited agitated, and argumentative behavior. Mental status exam: Alert and attentive. Oriented times three. Pleasant and cooperative. Psychomotor activity: Increased. Speech: Normal in tone. Hyperverbal with push of speech. Quality was normal. Mood: "Good" Affect: Expansive and intense. Suicidal ideation: None Homicidal ideation: None. . Perceptions: No auditory or visual hallucinations noted Though content: Mild grandiosity noted with inflated self esteem. Process: Flight of ideas noted. Cognition: Intact. Judgment and insight: Poor. Assessment/Plan: Diagnoses: Bipolar 1 disorder, current episode manic with psychotic features, Nicotine dependence, Rule out PTSD Plan: he patient meets the criterias for inpatient psychiatric admission for symptom stabilization and safety. Continue current medications. Monitor MS and side effects of the medications and adjust medications as needed. Supportive psychotherapy. [facility] milieu.
--- NOTE | 2024-10-06 13:05 | P.PN ---
Progress Note - Text Progress Note Date: 10/06/24 Progress Note - Text Subjective: The patient noted feeling fine. He denied any symptoms on leading questions. He did note that he has been diagnosed with decompressed psychosis. He wants to know the meaning of this diagnosis. The patient noted that his plan is in place. He intends to live in a motel. He claims have saved money. He did not want to reveal the source. He gets SSI. He gets about $500, as per patient. Later, he noted that he is going to live in [place]. He also wants to sell his car. The patient noted that he will donate the car for [place]. The patient was unable to give any coherent plans after discharge. The patient noted being compliant with medications. He reported no side effects. He attends [facility] activities. He has had no behavioral issues since last episode over the weekend. The patient did mention that he can easily get in to verbal "shouts" with people. He indicated that his humor is misunderstood by the people. As per group therapist he talks too much, which gets him in to trouble. Mental status exam: Alert and attentive. Oriented times three. Pleasant and cooperative. Psychomotor activity: Increased. Speech: Normal in tone, quality and quantity. Mood: "Good" Affect: Expansive. Suicidal ideation: None Homicidal ideation: None. . Perceptions: No auditory or visual hallucinations noted Though content: Mild grandiosity noted with inflated self esteem. Process: Normal Cognition: Intact. Judgment and insight: Poor. Assessment/Plan: Diagnoses: Bipolar 1 disorder, current episode manic with psychotic features, Nicotine dependence, Rule out PTSD Plan: he patient meets the criteria for inpatient psychiatric admission for symptom stabilization and safety. Continue current medications. Monitor MS and side effects of the medications and adjust medications as needed. Supportive psychotherapy. [facility] milieu.
--- NOTE | 2024-10-07 15:47 | P.PN ---
Progress Note - Text Progress Note Date: 10/07/24 Interval History: Patient seen via HIPAA-compliant Zoom and patient consented. Patient was seen agreeable to speak with parts data writer in the office. Phong states that he has been feeling significantly more clear and stable since being on current medication regimen. He says that his mood is "good." He has been sleeping well and has good energy. He states his energy is reduced while on mood stabilizers but since he has been on monotherapy with Zyprexa, he has been as drowsy during the daytime. He reports participating in groups. Rates the rapidity of his thought at 6/10 if 10 were the fastest speed, which appears to be in line with today's assessment. He denies racing thoughts. He plans to move to [facility] to be closer to his family after discharge. He reports plans to continue taking Zyprexa and trazodone after discharge. At this time patient denies any suicidal or homicidal ideations, intent or plan. Patient denies any auditory, visual hallucinations and denies any paranoia or delusions. Patient denies any side effects from the medications and has been compliant with meds. Mental Status Exam: General Appearance: Patient appears to be stated age is alert, directable, and cooperative. Behavior: Patient is calmly seated without any agitated behavior. Speech: Patient's speech is fluent and nonpressured. Mood/Affect: Mood is happy, affect is congruent and constricted. Suicidality/Homicidality: Patient denies having any suicidal or homicidal ideation intent or plan. Perceptions: Patient denies any visual hallucinations and denies any auditory hallucinations Though content/process: There is no evidence of any delusional thought content and thought process is linear and goal-directed. Memory and concentration: AOX3, grossly intact for the purposes of this session Judgment and insight: Improving mildly, fair Assessment Bipolar 1 disorder current episode manic with psychotic features Nicotine dependence Rule out PTSD PLAN: -Medications : Continue Zyprexa and trazodone -Patient was informed of the risks, benefits and side effects of the medication and patient verbally consented to taking the medications. Patient signed med consent form and was placed in chart. -Internal Medicine on board -NRT -nicotine patch - on board for discharge planning. Encourage patient to participate in groups to work on coping skills. Needs med f/u appt with PCP and [facility] f/u
[2024-10-07] MEDS: OLANZapine 10 MG TAB PO SCH (21:04)
--- NOTE | 2024-10-08 09:22 | P.PN ---
Progress Note - Text Progress Note Date: 10/08/24 Interval History: Patient seen via HIPAA-compliant Zoom and patient consented. Patient was seen agreeable to speak with securities underwriter in the office. Patient presents irritably and is upset that his Zyprexa was incrased. Discussed the reasons and he was able to become less agitated. However, he is elevated, grandiose, and suspicious. He states that he might be speaking with AI and asks for this provider's credentials. He also has poorly constructed plans of leaving town, selling various belongings/donating them, and staying one night in a hotel "where I have an in." He says he "spends money to make money." He displays increased psychomotor activity and made odd gestures when informed that he will not be discharged today. Of note, contact at [facility] remarks that this is not patient's baseline. At this time patient denies any suicidal or homicidal ideations, intent or plan. Patient denies any auditory, visual hallucinations and denies any paranoia or delusions. Patient denies any side effects from the medications and has been compliant with meds. Mental Status Exam: General Appearance: Patient appears to be stated age is alert, directable, and somewhat cooperative. Behavior: Increase psychomotor agitation Speech: Patient's speech is fluent and nonpressured. Mood/Affect: Mood is elevated and irritable, affect is broad Suicidality/Homicidality: Patient denies having any suicidal or homicidal ideation intent or plan. Perceptions: Patient denies any visual hallucinations and denies any auditory hallucinations Though content/process: There is no evidence of any delusional thought content and thought process is linear and goal-directed. Memory and concentration: AOX3, grossly intact for the purposes of this session Judgment and insight: Improving mildly, fair Assessment Bipolar 1 disorder current episode manic with psychotic features Nicotine dependence Rule out PTSD PLAN: -Medications : Continue Zyprexa 20 mg qHS for mood stabilization and trazodone -Patient was informed of the risks, benefits and side effects of the medication and patient verbally consented to taking the medications. Patient signed med consent form and was placed in chart. -Internal Medicine on board -NRT -nicotine patch - on board for discharge planning. Encourage patient to participate in groups to work on coping skills. Needs med f/u appt with PCP and [facility] f/u
--- NOTE | 2024-10-09 17:33 | P.PN ---
Progress Note - Text Progress Note Date: 10/09/24 Interval History: Chief complaint "Manic" History of presenting illness Patient was seen [wandering the hallways] and was directable and agreeable to speak with commercial insurance underwriter in the office. The patient presented stating that he is "emotionally exhausted". He notes that he wants for social security assessor over at [facility] to hurry up and get his stuff done because he is about to lose his apartment. Patient did make some loose references during the interview. He denied any racing thoughts but noted that he had mood swings. He notes that he fell asleep in 2 groups and slept throughout the night. He notes that his energy is low however his appetite is good. He notes that his concentration is poor and he can only read about 4 pages in a book but then stated that he has ADHD. At this time patient denies any suicidal or homical ideations, intent or plan. Patient denies any auditory, visual hallucinations and denies any paranoia or delusions. Patient denies any side effects from the medications and has been compliant with meds. Mental Status Exam: General Appearance: [Patient appears to be stated age is alert, and guarded.] Behavior: Restless had a hard time sitting still Speech: Patient's speech is fluent and pressured. Mood/Affect: Mood is improving mildly, affect is congruent and constricted. Suicidality/Homicidality: Patient denies having any suicidal or homicidal ideation intent or plan. Perceptions: Patient denies any visual hallucinations [and denies any auditory hallucinations] Though content/process: Presented mildly delusional Memory and concentration: AOX3, grossly intact for the purposes of this session Judgment and insight: Improving mildly Diagnosis Bipolar disorder type I most recent episode manic Tobacco use disorder R/O PTSD Assessment The patient is presenting with pressured speech as well as mild delusional thoughts and somewhat of a grandiose mood. There is also witnessed mood swings including tearful behavior. The patient needs to continue inpatient psychiatric care. Plan: -Patient continues to meet criteria for inpatient psychiatric admission for symptom stabilization and safety. Patient has signed [adult voluntary form and] [medication consent] and was placed in patient's chart. -Medications: Continue Zyprexa 20 mg take 1 tablet by mouth at bedtime Trazodone 50 mg take 1 tablet at bedtime -When necessary Ativan and Haldol for agitation/aggression. -NRT - [nicotine patch] -SW on board for discharge planning. Encouraged the patient to participate in milieu. []
--- NOTE | 2024-10-10 16:33 | P.PN ---
Progress Note - Text Progress Note Date: 10/10/24 Interval history: Patient was seen wandering the hallways and was directable and agreeable to s peak with program writer. He says he is upset he was not discharged but believes that he is being tested for his reaction to the news. He feels that he is doing better but admits that he can get loud and have rapid thoughts. He said he would become very agitated if he were to be asked to consider taking a mood stabilizer. he was agreeable with increase in Zyprexa tonight. He said he has been napping at times during the day and otherwise has been sleeping fairly well at night. Endorses good appetite and denies all other concerns. At this time patient denies any suicidal or homicidal ideations intent or plan. Denies any Auditory or visual hallucinations. Patient denies any side effects from the medications and has been compliant with meds. Mental status exam: General Appearance: [Patient appears to be stated age is alert, directable, and cooperative.] Behavior: [No agitated behavior. Patient is calm and directable] Speech: Patient's speech is hyperverbal and loud Mood/Affect: Mood is mildly elevated, affect is congruent and constricted. Suicidality/Homicidality: Patient denies having any suicidal or homicidal ideation intent or plan. Perceptions: Patient denies any auditory or visual hallucinations. Though content/process: There is no evidence of any delusional thought content and thought process is linear and goal-directed. Memory and concentration: AOX3, grossly intact for the purposes of this session Judgment and insight: improving mildly Assessment/Plan: Continue with current diagnosis. Patient continues to meet criteria for inpatient psychiatric admission for symptom stabilization and safety. Increase Zyprexa to 25 mg at bedtime. Monitor for medication compliance and for any psychotropic medication side effects. Will continue to monitor ongoing response to treatment. Encouraged participation in milieu.
[2024-10-10] MEDS: OLANZapine 5 MG TAB PO SCH (21:29)
--- NOTE | 2024-10-11 12:07 | P.PN ---
Progress Note - Text Progress Note Date: 10/11/24 Interval history: Patient was seen wandering the hallways and was directable and agreeable to s peak with short story writer. Patient states that he has been sleeping more and plans to take less Ativan as needed today so that he is able to be awake and present during the daytime. He reports that his mood is "fair ". He denies flight of ideas or irritability. He expresses some frustration with not having been discharged last week but states that he plans to continue to be cooperative. Patient appears to be significantly less elevated. He continues to have idea to want to move to another county because he does not want to reside in this county any longer. He also does not want to follow-up with [facility]. He reports having lower energy today and denies concerns with appetite. At this time patient denies any suicidal or homicidal ideations intent or plan. Denies any Auditory or visual hallucinations. Patient denies any side effects from the medications and has been compliant with meds. Mental status exam: General Appearance: [Patient appears to be stated age is alert, directable, and cooperative.] Behavior: [No agitated behavior. Patient is calm and directable] Speech: Patient's speech is less hyperverbal, more fluent. Mood/Affect: Mood is "fair ", affect is congruent and constricted. Suicidality/Homicidality: Patient denies having any suicidal or homicidal ideation intent or plan. Perceptions: Patient denies any auditory or visual hallucinations. Though content/process: There is no evidence of any delusional thought content and thought process is linear and goal-directed. Memory and concentration: AOX3, grossly intact for the purposes of this session Judgment and insight: improving mildly Assessment/Plan: Continue with current diagnosis. Patient appears to be overall improving clinically but continues continues to meet criteria for inpatient psychiatric admission for symptom stabilization and safety. Continue Zyprexa 25 mg at bedtime. Monitor for medication compliance and for any psychotropic medication side effects. Will continue to monitor ongoing response to treatment. Encouraged participation in milieu. Social work to coordinate discharge planning. Would consider scheduling appointment with primary care doctor Dr. Tammy Ortiz since patient is not interested in f/u at [facility]
--- NOTE | 2024-10-12 13:30 | P.PN ---
Progress Note - Text Progress Note Date: 10/12/24 Interval History: Patient was seen wandering the hallways and was directable and agreeable to tiff cordova with program writer in the office. Patient notably has been placed on fall restrictions due to inappropriate sexual remarks made and this was addressed today to which patient claims he was joking with a friend but now realizes how the joke could have been taken out of context. Patient today notably was goal oriented, talked about his possible eviction at his house given unpaid rent however he wishes to return home there. He ultimately wishes to move to [facility] but this will be explored further upon discharge. Patient reported being upset last week with verbal outbursts related to his Zyprexa being increased without his knowledge. He reports feeling remorse for this and states he is able to better control his emotions. At this time patient denies any suicidal or homicidal ideations, intent or plan. Patient denies any auditory, visual hallucinations and denies any paranoia or delusions. Patient denies any side effects from the medications and has been compliant with meds. Mental Status Exam: General Appearance: Patient appears to be stated age is alert, directable, and cooperative. Patient is wearing glasses with fair grooming and hygiene Behavior: Patient is calmly seated without any agitated behavior. Speech: Patient's speech is fluent and nonpressured. Mood/Affect: Mood is improving mildly, affect is congruent and full range. Suicidality/Homicidality: Patient denies having any suicidal or homicidal ideation intent or plan. Perceptions: Patient denies any visual hallucinations and denies any auditory hallucinations Though content/process: There is no evidence of any overt delusional thought content and thought process is linear and goal-directed. Memory and concentration: AOX3, grossly intact for the purposes of this session Judgment and insight: Improving mildly Assessment Bipolar 1 disorder, current episode manic with psychotic features Nicotine dependence Plan: -Patient continues to meet criteria for inpatient psychiatric admission for symptom stabilization and safety. Patient has signed adult voluntary form and medication consent and was placed in patient's chart. -Medications: Continue Zyprexa 25 mg at bedtime for bipolar disorder/sleep, trazodone 50 mg at bedtime for insomnia -When necessary Ativan and Haldol for agitation/aggression. -Labs: Grossly WNL -NRT -nicotine patch -SW on board for discharge planning. Encouraged the patient to participate in milieu. Anticipate discharge back home tomorrow
[2024-10-12] MEDS: FLUTICASONE NASAL 50MCG/SPRAY 16GM BTL EA NOSTRIL SCH (23:19)
[2024-10-13 14:18] VITALS: BP 116/71; PULSE 95; TEMP 96.8
[2024-10-13 14:19] VITALS: BMI 36.8
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
== END 2024-10-13 12:56 | disposition home or self-care (01) | DRG 750 ==
LOC: 3MHU 17:27
PROVIDERS: ADMIT Psychiatry & Neurology Psychiatry; ATTEND Psychiatry & Neurology Psychiatry
DX: F31.2 Bipolar disorder, current episode manic severe with psychotic features (principal); E66.9 Obesity, unspecified; G47.00 Insomnia, unspecified; F90.9 Attention-deficit hyperactivity disorder, unspecified type; F84.0 Autistic disorder; F41.1 Generalized anxiety disorder; F12.11 Cannabis abuse, in remission; F10.11 Alcohol abuse, in remission; F17.200 Nicotine dependence, unspecified, uncomplicated; Z62.810 Personal history of physical and sexual abuse in childhood; Z79.899 Other long term (current) drug therapy; Z65.3 Problems related to other legal circumstances; Z56.0 Unemployment, unspecified; Z68.36 Body mass index [BMI] 36.0-36.9, adult; Z71.41 Alcohol abuse counseling and surveillance of alcoholic; Z28.21 Immunization not carried out because of patient refusal; Z71.3 Dietary counseling and surveillance
CPT/HCPCS: 80053; 83735; 84443; 85025